=== PATIENT | male | born 1965 | race Caucasian/White ===

== ENCOUNTER 2020-05-14 14:17 | Outpatient (REF) | payer MEDICAID, SELFPAY ==
--- NOTE | 2020-05-14 14:26 | XR_ITS ---
EXAMINATION: XR LUMBOSACRAL SPINE WITH OBLIQUES CLINICAL INFORMATION: Right-sided sciatica. COMPARISON: Lumbar spine x-rays of 11/19/2017. TECHNIQUE: AP and lateral views of the lumbar spine and coned-down lateral view of L5-S1 were obtained. FINDINGS: There are 5 lumbar-type [id number] vertebrae. Vertebral body heights are maintained. Mild grade 1 anterolisthesis of L5 over S1 is a stable finding. The alignment of the spine is otherwise maintained. Stable finding of severe narrowing of the L5-S1 disc space with vacuum disc phenomenon. Mild narrowing of the L3-L4 disc space. Remainder of the disc spaces are grossly preserved. Multilevel minimal hypertrophic endplate spurring is noted. Scattered vascular calcifications are seen. Facet arthropathy at L5-S1. Limited evaluation of the sacroiliac joints is unremarkable. IMPRESSION: Mild lumbar spondylosis. Severe degenerative disc disease at L5-S1 with significant loss of disc height and mild grade 1 anterolisthesis of L5 over S1 are stable findings. Overall, no significant interval change is noted compared to last study.
== END 2020-05-14 14:18 | disposition home or self-care (01) ==
LOC: HO.XRAY 14:17
PROVIDERS: PCP Family Medicine; Visit Provider Family Medicine
DX: M54.31 Sciatica, right side (principal)
CPT/HCPCS: 72110

== ENCOUNTER → 2020-06-25 13:11 | Outpatient (BNVA) | payer MEDICAID, SELFPAY | PROVIDERS: PCP Family Medicine; Referring Provider Family Medicine; Visit Provider Nurse Practitioner Family | DX: Z13.89 Encounter for screening for other disorder (principal) ==

== ENCOUNTER 2020-08-20 09:16 | Day surgery (SDC) | payer MEDICAID, SELFPAY ==
[2020-08-15 08:48] VITALS: BMI 23.3
--- NOTE | 2020-08-19 10:19 | HO.ANESPROP2 ---
Documented by User: Isabela Flores 08/19/20 10:20 HPI - Anesthesia Eval Consult details Narrative: 55yo M for Colonoscopy [facility] Past Medical History Medical History Arthritis Congenital foot abnormality Depression Hepatitis A immune Lumbar degenerative disc disease Nonimmune to hepatitis B virus Family History Family History Mother Liver cancer Maternal Uncle Alcoholism Surgical History Surgical History History of hydrocelectomy History of repair of laceration Social History Social History Household Members: None Housing: Apartment Alcohol intake: current Alcohol intake frequency: does not drink Smoking Status: Current some day smoker Tobacco Type: Cigarette Cigarettes Per Day: 9 Use of substances other than those prescribed or required for medical reasons: Yes Substance Use Type: Marijuana Substance Use Frequency: Daily Advance Directives: No Advance Directives Information Provided: No Advance Directives on File: No Meds Allergies Allergy/AdvReac Type Severity Reaction Status Date / Time No Known Allergies Allergy Verified 06/25/20 13:12 Home Medications Medication Instructions Recorded Confirmed Type cyclobenzaprine 5 mg tablet 5 mg PO TID PRN 06/25/20 08/15/20 History naproxen 500 mg tablet 500 mg PO BID 06/25/20 08/15/20 History trazodone 150 mg tablet 150 mg PO BEDTIME PRN 06/25/20 08/15/20 History Exam Exam Date and Time: August 19, 2020 1019 Height,Weight and Vital Signs: Height 5 ft 5 in Weight 63.503 kg Assessment and Plan Assessment Anesthesia Assessment: Chart Reviewed Documented by User: Gloria Henry 08/20/20 11:13 [facility] Past Medical History Medical History Arthritis Congenital foot abnormality Depression Hepatitis A immune Lumbar degenerative disc disease Nonimmune to hepatitis B virus Family History Family History Mother Liver cancer Maternal Uncle Alcoholism Surgical History Surgical History History of hydrocelectomy History of repair of laceration Social History Social History Household Members: None Housing: Apartment Alcohol intake: current Alcohol intake frequency: does not drink Smoking Status: Current some day smoker Tobacco Type: Cigarette Cigarettes Per Day: 9 Use of substances other than those prescribed or required for medical reasons: Yes Substance Use Type: Marijuana Substance Use Frequency: Daily Advance Directives: No Advance Directives Information Provided: No Advance Directives on File: No Meds Allergies Allergy/AdvReac Type Severity Reaction Status Date / Time No Known Allergies Allergy Verified 06/25/20 13:12 Home Medications Medication Instructions Recorded Confirmed Type cyclobenzaprine 5 mg tablet 5 mg PO TID PRN 06/25/20 08/15/20 History naproxen 500 mg tablet 500 mg PO BID 06/25/20 08/15/20 History trazodone 150 mg tablet 150 mg PO BEDTIME PRN 06/25/20 08/15/20 History Exam Airway Mallampati Class: II TM Dist: >3cm Neck ROM: Full Loose/Missing/Broken Teeth: Yes (Lower central incisor) Heart: RRR Lungs: CTA Assessment and Plan Assessment Anesthesia Assessment: Anesthesia Plan Discussed and Chart Reviewed Final Anesthetic Review NPO: Yes ASA Class: II Final Preanesthetic Review: Meds/Allgs Chart Reviewed, Consent Obtained/Reviewed and Anes Risks/Benef Reviewed Patient Risk: Low Procedure Risk: Low Anesthetic Plan Anesthetic Plan: MAC:
[2020-08-20 10:38] VITALS: BP 126/74; PULSE 67; RESP 18; TEMP 36.6; O2SAT 96
[2020-08-20] MEDS: Lactated Ringers 1,000 ML 100 ML IVCONT (10:55)
--- NOTE | 2020-08-20 11:15 | MHC.SHP ---
Pre-Procedural Eval Section B Chief Complaint: screening Details of Present Illness: colon cancer screening Relevant Family History (Specify if Yes): No Relevant Social History: Tobacco Use Present Medications: see Short Stay Collaborative assessment Medical History: Significant History (DDD, Arthritis) History of Previous Operations: No relevant previous surgery Allergies: Allergies Allergy/AdvReac Type Severity Reaction Status Date / Time No Known Allergies Allergy Verified 06/25/20 13:12 Review of Systems Sugical H&P ROS: Negative: Constitution, Cardiovascular, Respiratory and Gastrointestinal Exam Surgical H&P Exam: Normal: HEENT, Normal: Heart, Normal: Lungs, Normal: Extremities and Normal: Abdomen Plan Diagnosis/Plan: Unchanged I have reviewed the history and physical and performed a pertinent physical examination on my patient. No changes have occurred unless specified.Yes
--- NOTE | 2020-08-20 11:58 | PM.PROC ---
Brief Operative Note Date of procedure: 08/20/20 Pre-op diagnosis: colon cancer screening Post-op diagnosis: other (NEGATIVE (MARGINAL PREP.), INTERNAL HEMORRHOIDS.) Procedure: COLONOSCOPY Anesthesia: MAC (MD KATHY) Surgeon: Edita Pantoja Estimated blood loss (mL): 0 Pathology: none sent Condition: stable Disposition: PACU
[2020-08-20 12:00] VITALS: BP 97/53; PULSE 66; RESP 16; TEMP 36.4; O2SAT 95
[2020-08-20 12:15] VITALS: BP 106/59; PULSE 55; RESP 16; O2SAT 97
[2020-08-20 12:27] VITALS: BP 124/86; PULSE 63; RESP 16; TEMP 36.4; O2SAT 98
--- NOTE | 2020-08-20 12:49 | HO.POSTANES ---
Post Anesthesia Evaluation Post Anesthesia Evaluation Vital Signs: Vital Signs Temp Pulse Resp BP Pulse Ox 08/20/20 12:27 97.6 F 63 16 124/86 98 08/20/20 12:15 55 16 106/59 L 97 08/20/20 12:00 97.6 F 66 16 97/53 L 95 08/20/20 10:38 97.9 F 67 18 126/74 96 Anesthesia: Monitored Mental Status: Awake Pain Control: Satisfactory Nausea/Vomiting: None Hydration: Adequate Anesthesia-Related Issues: No Anes. Related Issues
--- NOTE | 2020-08-20 20:57 | OP_ITS ---
SURGEON: Edita Pantoja MD PREOPERATIVE DIAGNOSIS: Colon cancer screening PROCEDURE PERFORMED: Colonoscopy. ESTIMATED BLOOD LOSS: No blood loss. COMPLICATIONS: No complications. ANESTHESIA: Monitored. ANESTHESIOLOGIST: Dr. Sanchez ASSISTANTS: No restaurant assistant. SPECIMENS: No specimens removed. POSTOPERATIVE DIAGNOSES: Negative: There was lots of retained turbid fluid. No large lesions were appreciated. 1+ internal hemorrhoids were noted. MINCING MACHINE OPERATOR: Dr. Pantoja. CONDITION: Postop, stable. DESCRIPTION OF PROCEDURE: Digital rectal exam revealed prostate to be normal. Sphincter tone to be adequate. Video colonoscope was introduced without difficulty. It was navigated into the rectosigmoid. There was a moderate amount of retained turbid fluid that despite flushing and suctioning continued to the recollect throughout the entire procedure. Scope moved through a redundant left side, sigmoid, descending, transverse colon. In the region of the proximal transverse colon, extrinsic abdominal pressure was applied, facilitated movement through hepatic flexure, ascending colon down into the cecum. Appendiceal orifice was seen. Ileocecal valve was well seen. This area was well visualized with flushing and suction. Slow rotational views on withdrawing the scope, there were still areas obscured by effluent that was hard to completely remove. With this type of prep, no microadenomas could be seen. There was certainly no large lesions present. Anorectal verge was clear. There were 1+ internal hemorrhoids noted. PLAN AND CURRENT RECOMMENDATIONS: Repeat asymptomatic screening in this patient, is not to exceed 5 years. Would suggest FIT cards to be done at year 1 and 2. Any suggestion of bleeding or iron deficiency anemia, would necessitate earlier repeat screening. GRAFT OR IMPLANTS: No implants or grafts. Edita Pantoja MD MEN/MODL / [phone] MTDD
== END 2020-08-20 13:40 | disposition home or self-care (01) ==
PROVIDERS: PCP Family Medicine; Visit Provider Internal Medicine Gastroenterology
PROC: 0DJD8ZZ Inspection of Lower Intestinal Tract, Via Natural or Artificial Opening Endoscopic (ICD-10-PCS; CPT 45378; principal; 2020-08-20 10:30)
DX: Z12.11 Encounter for screening for malignant neoplasm of colon (principal); K64.8 Other hemorrhoids; Z80.0 Family history of malignant neoplasm of digestive organs; F17.210 Nicotine dependence, cigarettes, uncomplicated; F12.90 Cannabis use, unspecified, uncomplicated; Z79.899 Other long term (current) drug therapy
CPT/HCPCS: 45378

== ENCOUNTER → 2020-10-01 13:15 | Outpatient (BNVA) | payer MEDICAID, SELFPAY | PROVIDERS: PCP Family Medicine; Visit Provider Nurse Practitioner Family ==

== ENCOUNTER → 2020-10-29 13:20 | Outpatient (BNVA) | payer MEDICAID, SELFPAY | PROVIDERS: PCP Family Medicine; Visit Provider Nurse Practitioner Family ==

== ENCOUNTER 2020-11-28 10:35 | Emergency (ER) | payer MEDICAID, SELFPAY ==
[2020-11-28 11:24] VITALS: BP 98/62; RESP 16; TEMP 36.6; O2SAT 99; BMI 23.8
--- NOTE | 2020-11-28 12:59 | PC.NURSE ---
[address]50 [address] ENTERED TX ROOM FOR EXAM, ROOM WAS EMPTY, RN CHECKED BATHROOMS AND WR DID NOT LOCATE PT
== END 2020-11-28 13:00 | disposition left against medical advice (07) ==
PROVIDERS: Emergency Provider Emergency Medicine; PCP Family Medicine
DX: M54.9 Dorsalgia, unspecified (principal)
CPT/HCPCS: 99281; 99283

== ENCOUNTER 2020-11-30 15:10 | Emergency (ER) | payer MEDICAID, SELFPAY ==
--- NOTE | ~2020-11-30 | XR_ITS ---
EXAMINATION: XR LUMBOSACRAL SPINE CLINICAL INFORMATION: Fall with back pain COMPARISON: 05/14/2020 and 11/19/2017 TECHNIQUE: Three views of the lumbosacral spine. FINDINGS: Normal alignment with no acute fracture. Moderate-severe L5-S1 degenerative disc disease, no change. Mild degenerative changes throughout the remainder of the lumbar spine with sparing of L4-L5. Atherosclerotic calcifications of the abdominal aorta. XR/XR lumbar spine 2-3V IMPRESSION: Normal alignment with no fracture. Moderate-severe L5-S1 degenerative disc disease. No change.
--- NOTE | ~2020-11-30 | CT_ITS ---
EXAMINATION: CT CHEST WITHOUT CONTRAST CLINICAL INFORMATION: Right posterior rib pain COMPARISON: The upper portions of a CT of the abdomen 08/12/18 TECHNIQUE: Multidetector volumetric CT imaging of the chest was done. Axial MIP volume rendering provided. Sagittal and coronal reformatted images were obtained. This CT examination was performed using dose optimization techniques as appropriate, variously including the following: *Automated exposure control *Adjustment of mA and/or kV according to patient size (this includes techniques or standardized protocols for targeted exams where dose is matched to indication/reason for exam; i.e. extremities or head) *Use of iterative reconstruction technique DLP: 249 mGy-cm FINDINGS: CAREER DEVELOPMENT DIRECTOR: No mediastinal widening. No consolidation or contusion. No pneumothorax. The diaphragm contour is smooth. Spherical calcification right upper quadrant. LUNGS: No abnormality the central airways. No consolidation or edema. No suspicious mass MEDIASTINUM: There is no mediastinal hematoma. There are no enlarged mediastinal or hilar lymph nodes. There is no suspicious abnormality the esophagus. There is at least mild coronary artery calcification in the distribution of the left anterior descending coronary artery. PLEURA: There is no pleural effusion. No pleural mass or thickening. AXILLA: No lymphadenopathy. UPPER ABDOMEN: Spherical calcification in the region of the right adrenal is unchanged and of no clinical significance. There are tiny abnormalities in each kidney which are too small to characterize but likely represent cysts. OSSEOUS STRUCTURES: No rib fracture demonstrated. No suspicious focal lesion. CT/CT chest wo con IMPRESSION: No pulmonary contusion or pneumothorax. No acute displaced fracture.
[2020-11-30 15:15] VITALS: BP 112/68; PULSE 84; RESP 16; TEMP 37; O2SAT 95; BMI 25.7
[2020-11-30 16:01] VITALS: BP 112/75; PULSE 79; RESP 16; O2SAT 95
--- NOTE | 2020-11-30 16:04 | ED_ITS ---
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 Mode of arrival: ambulatory Limitations: no limitations History of Present Illness HPI Narrative: 55 yo male with arthritis here with back pain for almost a decade but notes it is much worse recently it all started after pulling a boat in [place] over the past few weeks it has worsened and he feels a bump in his R posterior ribs and it makes it hard for him to walk or do anything MD elicited complaint: back pain Pertinent past history: prior back pain Onset (ago): year(s) Timing: progressively worsening Severity: moderate Similar Symptoms Previously: Yes Quality: sharp and stabbing Location: thoracic spine and right upper back Radiation: right upper leg Exacerbating factors: movement, walking and lifting Context: trauma Associated symptoms: weakness and difficulty walking Work related injury: No Related Data Home Medications Medication Instructions Recorded Confirmed cyclobenzaprine 5 mg tablet 5 mg PO TID PRN 06/25/20 08/15/20 naproxen 500 mg tablet 500 mg PO BID 06/25/20 08/15/20 trazodone 150 mg tablet 150 mg PO BEDTIME PRN 06/25/20 08/15/20 Previous Rx's Medication Instructions Recorded hydrocortisone 2.5 % topical cream 1 appl WA QID PRN #30 g 10/01/20 with perineal applicator methylcellulose (laxative) 500 mg 500 mg PO DAILY #30 tab 10/01/20 tablet lidocaine 1 patch TOPICAL DAILY PRN #10 ea 11/30/20 prednisone 40 mg PO DAILY 5 Days #10 tab 11/30/20 Allergies Allergy/AdvReac Type Severity Reaction Status Date / Time No Known Allergies Allergy Verified 10/29/20 13:20 Review of Systems Review of Systems: Constitutional : No Weight loss, No Fever, No Chills, ENT/Mouth : No Hearing loss, No Ear Pain, No Nasal Congestion, No Sinus Pain, No Hoarseness, No sore throat, No Rhinorrhea, No Swallowing Difficulty Cardiovascular : No Chest Pain, No SOB Respiratory : No Cough, No Dyspnea Gastrointestinal : No Nausea, No Vomiting, No Diarrhea, No abdominal Pain, No Hematochezia, No Melena Genitourinary : No Dysuria, No Urinary Frequency, No Hematuria, No Urinary Incontinence, Musculoskeletal : positive back pain Skin : No Skin Lesions, No rash Neuro : No Weakness, No Numbness, No Paresthesias, no loss of bowel or bladder incontinence, no saddle anesthesia [facility] Past Medical History Attestation statement: The following information was validated with the patient. Medical History Arthritis Congenital foot abnormality Constipation Depression Hemorrhoid Hepatitis A immune Lumbar degenerative disc disease Nonimmune to hepatitis B virus Surgical History H/O colonoscopy History of esophagogastroduodenoscopy (EGD) History of hydrocelectomy History of repair of laceration Family History Family History Mother Liver cancer Maternal Uncle Alcoholism Social History Social History Household Members: None Housing: Apartment Alcohol intake: current Alcohol intake frequency: does not drink Smoking Status: Current some day smoker Tobacco Type: Cigarette Packs Per Day: 1 Substance Use Type: Marijuana Advance Directives: No Advance Directives Information Provided: No Physical Exam Vital Signs: Vital Signs: Last Vital Signs Temp 98.6 F 11/30/20 15:15 Pulse 73 11/30/20 18:06 Resp 16 11/30/20 18:06 BP 112/73 11/30/20 18:06 Pulse Ox 98 11/30/20 18:06 Body Mass Index 25.7 Appearance: Alert. Oriented X3. No acute distress. Eyes: Pupils equal, round and reactive to light. ENT: Pharynx normal. Neck: Normal inspection. Neck supple. CVS: Normal heart rate and rhythm. Pulses normal. Respiratory: No respiratory distress. Breath sounds normal. Abdomen: Soft and nontender. Back: ttp along R upper thoracic with spasm and R posterior ribs Skin: Skin warm and dry. Normal skin color. Normal skin turgor. Extremities: No lower extremity edema. No calf ttp R foot turned in but congenital Neuro: Oriented X 3. No motor deficit. No sensory deficit. SILT inner thigh, L5 5/5 bilaterally Course Course Course Narrative: no acute findings at this time stable for DC MDM - Back Pain/Injury MDM Narrative Medical decision making narrative: 55 yo male with hx of arhtritis and remote back pain - comes in with R upper thoracic/rib pain feels a bump notes his back is worse c/o pain no b/b incontinence, no saddle anesthesia - at this time lumbar films ordered from triage, he has no CE symptoms, but will obtain CT chest for c/o R posterior rib pain for weeks doubt PE or pneumonia, PO oxycodone for pain, will likely refer to NSGY Discharge Plan Discharge Clinical Impression: Thoracic back pain Qualifiers: Chronicity: chronic Back pain laterality: right Qualified Code(s): M54.6 - Pain in thoracic spine Patient Disposition: Home, Self-Care Instructions: Back Pain (ED) Additional Instructions: return to ED for any worsening symptoms or concerns Prescriptions: New lidocaine 4 % adhesive patch,medicated 1 patch topical DAILY PRN (Reason: pain) Qty: 10 RF: 0 prednisone 20 mg tablet 40 mg PO DAILY 5 Days Qty: 10 RF: 0 No Action naproxen 500 mg tablet 500 mg PO BID RF: 0 cyclobenzaprine 5 mg tablet 5 mg PO TID PRN (Reason: Muscle Spasm) RF: 0 trazodone 150 mg tablet 150 mg PO BEDTIME PRN (Reason: Insomnia) RF: 0 Citrucel 500 mg tablet 500 mg PO DAILY Qty: 30 RF: 2 hydrocortisone [Anusol-HC] 2.5 % cream with perineal applicator 1 appl WA QID PRN (Reason: hemorrhoids) Qty: 30 RF: 2 Referrals: Mary Valadez MD [Physician] - 1 week Print Language: Anguillan
[2020-11-30] MEDS: oxyCODONE HCl Immed Release 5 MG TABLET PO (17:29)
[2020-11-30 18:06] VITALS: BP 112/73; PULSE 73; RESP 16; O2SAT 98
== END 2020-11-30 19:17 | disposition home or self-care (01) ==
PROVIDERS: Emergency Provider Emergency Medicine
DX: M54.5 Low back pain (principal); M54.6 Pain in thoracic spine; Z79.899 Other long term (current) drug therapy; F17.210 Nicotine dependence, cigarettes, uncomplicated; Z71.6 Tobacco abuse counseling
CPT/HCPCS: 71250; 72100; 99284; 99285

== ENCOUNTER → 2021-05-16 08:16 | Outpatient (BNVA) | payer MEDICAID, SELFPAY | PROVIDERS: Visit Provider Nurse Practitioner Family ==

== ENCOUNTER 2021-11-27 14:12 | Emergency (ER) | payer MEDICAID, SELFPAY ==
--- NOTE | ~2021-11-27 | XR_ITS ---
EXAMINATION: XR ELBOW, LEFT CLINICAL INFORMATION: Left elbow pain. COMPARISON: None TECHNIQUE: AP, lateral, and oblique views of the left elbow. FINDINGS: The bones and soft tissues are normal. No fracture or joint effusion. Alignment is anatomic. Joint spaces are maintained. XR/XR elbow LT min 3V IMPRESSION: Unremarkable left elbow.
[2021-11-27 14:43] VITALS: BP 104/67; PULSE 63; RESP 18; TEMP 36.7; O2SAT 97; BMI 25.2
--- NOTE | 2021-11-27 16:43 | ED_ITS ---
HPI - Extremity Problem General Chief complaint: Extremity Injury, Upper Stated complaint: L ARM PAIN Time Seen by Provider: 11/27/21 14:50 Source: patient Mode of arrival: ambulatory Limitations: language barrier History of Present Illness HPI Narrative: 56-year-old male presents for left arm pain that he has had for months. The pain is located in his medial left elbow and radiates down his left forearm. His 4th and 5th fingers get numb. No injury, no trauma, patient does not do any physical work that would explain a repetitive use injury No fevers Related Data Home Medications Medication Instructions Recorded Confirmed cyclobenzaprine 5 mg tablet 5 mg PO TID PRN 06/25/20 08/15/20 naproxen 500 mg tablet 500 mg PO BID 06/25/20 08/15/20 trazodone 150 mg tablet 150 mg PO BEDTIME PRN 06/25/20 08/15/20 Previous Rx's Medication Instructions Recorded hydrocortisone 2.5 % topical cream 1 appl DC QID PRN #30 g 10/01/20 with perineal applicator (Anusol-HC) lidocaine 4 % topical patch 1 patch TOPICAL DAILY PRN #10 ea 11/30/20 prednisone 20 mg tablet 40 mg PO DAILY 5 Days #10 tab 11/30/20 methylcellulose (laxative) 500 mg 500 mg PO DAILY #30 tab 05/16/21 tablet (Citrucel) prednisone 50 mg tablet 50 mg PO DAILY 5 Days #5 tab 11/27/21 Allergies Allergy/AdvReac Type Severity Reaction Status Date / Time No Known Allergies Allergy Verified 05/16/21 08:16 Review of Systems Constitutional: Constitutional: Denies body ache(s), Denies chills, Denies fatigue, Denies fever(s), Denies headache(s), Denies malaise and Denies weakness Eyes: Eyes: Denies diplopia ENT: Denies vertigo, Denies dizziness, Denies headache(s), Denies neck pain and Denies throat swelling Cardiovascular: Cardiovascular: Denies chest pain, Denies syncope, Denies leg edema, Denies lightheadedness, Denies Loss of Consciousness, Denies palpitations and Denies dyspnea Respiratory: Respiratory: Denies chest congestion, Denies cough and Denies dyspnea Musculoskeletal: Musculoskeletal: Reports arthralgias, Denies neck pain, Reports numbness, Reports radiating pain into limb and Reports tingling Neurologic: Denies confusion, Denies vertigo, Denies dizziness, Denies syncope, Denies headache(s), Reports numbness, Reports tingling and Denies weakness Psychiatric: Psychiatric: Denies anxiety, Denies confusion and Denies depression Endocrine: Endocrine: Denies fatigue and Denies palpitations Allergic/Immunologic: Allergic/Immunologic: Denies throat swelling PMFSH Past Medical History Medical History Arthritis Congenital foot abnormality Constipation Depression Hemorrhoid Hepatitis A immune Lumbar degenerative disc disease Nonimmune to hepatitis B virus Surgical History H/O colonoscopy History of esophagogastroduodenoscopy (EGD) History of hydrocelectomy History of repair of laceration Family History Family History Mother Liver cancer Maternal Uncle Alcoholism Social History Social History Household Members: None Housing: Apartment Do you presently have visiting nurse or other home services: Yes (EVENTS AND PROMOTIONS ASSISTANT- 1 hour daily) Alcohol intake: current Alcohol intake frequency: does not drink Cigarette Packs Per Day: 1 Substance Use Type: Marijuana Advance Directives: No Advance Directives Information Provided: Yes Physical Exam Vital Signs: Vital Signs: Last Vital Signs Temp 98.1 F 11/27/21 14:43 Pulse 63 11/27/21 14:43 Resp 18 11/27/21 14:43 BP 104/67 11/27/21 14:43 Pulse Ox 97 11/27/21 14:43 BMI result Body Mass Index 25.2 Const: General: No confusion Nutritional Appearance: well nourished Orientation/consciousness: No confusion Limitations: no limitations Eyes: Conjunctivae: conjunctivae normal Pupils: Equal, round and reactive pupils present EOM: EOMs intact bilaterally Neck: Neck: Yes full ROM, Yes no lymphadenopathy and Yes supple Resp: Effort & Inspection: normal respiratory effort and able to speak in complete sentences Auscultation: clear to auscultation bilaterally, no crackles, no rales, no rhonchi and no wheezes Cardio: Rate: regular rate Rhythm: regular rhythm Heart sounds: S1 normal heart sound present and S2 normal heart sound present Skin: General skin exam: no rashes or lesions noted Neuro: General: No confusion Cranial nerves: Yes Equal, round and reactive pupils present Extrem: Left upper extremity: normal to inspection, full ROM, normal capillary refill, no joint enlargement and elbow/forearm Details: tenderness Location: of the medial epicondyle Details: with resisted supination, normal ROM and distal pulses intact; Negative for no swelling, no unusual warmth, no abrasions, no lacerations, no crepitus and no deformity Psych: Appearance: grossly normal Affect: normal affect Attitude: cooperative Thought process: Normal thought process present Course Course Course Narrative: 56-year-old male presents for left elbow pain that radiates with radicular pain to his left forearm into his 4th and 5th fingers. On exam, patient has left upper extremity intact pulses, sensation, range of motion, and motor strength. When I press and patient's medial epicondyle, recreates and ulnar radiculopathy in his 4th and 5th fingers. Getting x-ray, expected to be negative, giving prednisone, presumed ulnar radiculopathy, follow-up with ortho. Reevaluation(s) Reevaluation #1: XR negative. Prednisone, follow-up with Ortho FINDINGS: The bones and soft tissues are normal. No fracture or joint effusion. Alignment is anatomic. Joint spaces are maintained.? XR/XR elbow LT min 3V IMPRESSION: Unremarkable left elbow. Discharge Plan Discharge Clinical Impression: Ulnar neuropathy at elbow of right upper extremity Patient Disposition: Home, Self-Care Instructions: Cubital Tunnel Syndrome (ED) Additional Instructions: Please call Orthopedics at the following number [phone] I have also referred you to them. Please take the medicine I have prescribed starting tomorrow. I think you have an impingement on your ulnar nerve in your elbow which is causing your finger numbness and your elbow pain Orthopedics should be able to help you with this diagnosis Por favor llame a [facility] al siguiente n?[place] [phone] Tambi?n te he referido a ellos. Por favor, tome el medicamento que le he recetado a partir de ma?jonathan. Creo que tiene un pinzamiento en el nervio cubital en el codo que le est? causando entumecimiento del dedo y dolor en el codo. La [facility]edia deber?a poder ayudarte con crys diagn?stico. Prescriptions: New prednisone 50 mg tablet 50 mg PO DAILY 5 Days Qty: 5 0RF No Action lidocaine 4 % adhesive patch,medicated 1 patch topical DAILY PRN (Reason: pain) Qty: 10 0RF Rx Instructions: may leave on for up to 12 hrs prednisone 20 mg tablet 40 mg PO DAILY 5 Days Qty: 10 0RF naproxen 500 mg tablet 500 mg PO BID 0RF cyclobenzaprine 5 mg tablet 5 mg PO TID PRN (Reason: Muscle Spasm) 0RF trazodone 150 mg tablet 150 mg PO BEDTIME PRN (Reason: Insomnia) 0RF hydrocortisone [Anusol-HC] 2.5 % cream with perineal applicator 1 appl DC QID PRN (Reason: hemorrhoids) Qty: 30 2RF Citrucel 500 mg tablet 500 mg PO DAILY Qty: 30 6RF Referrals: Jeovanny Tucker MD [Physician] - Print Language: Georgian
[2021-11-27] MEDS: predniSONE 20 MG TABLET 60 MG PO (17:34)
== END 2021-11-27 18:28 | disposition home or self-care (01) ==
PROVIDERS: Emergency Provider Internal Medicine
DX: G56.22 Lesion of ulnar nerve, left upper limb (principal)
CPT/HCPCS: 73080; 99283

== ENCOUNTER 2022-06-22 13:03 | Emergency (ER) | payer MEDICAID, SELFPAY ==
--- NOTE | ~2022-06-22 | CT_ITS ---
EXAMINATION: CT head/brain wo IV con CLINICAL INFORMATION: Reason for Exam seeing white spots ( resolved) COMPARISON: CT head without contrast 11/02/2017 TECHNIQUE: Contiguous axial imaging was performed from the skull base to vertex without intravenous contrast. Sagittal and coronal reformatted images were obtained. This CT examination was performed using dose optimization techniques as appropriate, variously including the following: * Automated exposure control * Adjustment of mA and/or kV according to patient size (this includes techniques or standardized protocols for targeted exams where dose is matched to indication/reason for exam; i.e. extremities or head) Use of iterative reconstruction technique DLP: 772 mGy-cm FINDINGS: No acute osseous or soft tissue abnormality. The mastoids are clear. Trace sphenoid sinus fluid. There is no evidence of acute intracranial hemorrhage or territorial infarction. Stable calcification along the ependymal margin of the right lateral ventricle. No abnormal mass effect or midline shift is seen. Love to white matter differentiation is well preserved. No extra-axial fluid collections are identified. No hydrocephalus. No significant volume loss. There is no abnormal attenuation within the brain parenchyma. CT/CT head/brain wo IV con IMPRESSION: No acute intracranial abnormality including hemorrhage, mass effect, hydrocephalus, or acute territorial edematous infarction.
--- NOTE | 2022-06-22 13:11 | ED.EYEPROB ---
HPI - Eye Problem General Chief complaint: Eye Problems Stated complaint: seeing white dots Time Seen by Provider: 06/22/22 16:26 Related Data Home Medications Medication Instructions Recorded Confirmed cyclobenzaprine 5 mg tablet 5 mg PO TID PRN Muscle Spasm 06/25/20 08/15/20 naproxen 500 mg tablet 500 mg PO BID 06/25/20 08/15/20 trazodone 150 mg tablet 150 mg PO BEDTIME PRN Insomnia 06/25/20 08/15/20 Previous Rx's Medication Instructions Recorded hydrocortisone 2.5 % topical cream 1 appl OR QID PRN hemorrhoids #30 10/01/20 with perineal applicator grams (Anusol-HC) lidocaine 4 % topical patch 1 patch topical DAILY PRN pain #10 11/30/20 ea prednisone 20 mg tablet 40 mg PO DAILY 5 days #10 tabs 11/30/20 methylcellulose (laxative) 500 mg 500 mg PO DAILY #30 tabs 05/16/21 tablet (Citrucel) prednisone 50 mg tablet 50 mg PO DAILY 5 days #5 tabs 11/27/21 ondansetron 4 mg disintegrating 4 mg PO Q8H PRN nausea and 06/25/22 tablet vomiting 5 days #15 tabs Allergies Allergy/AdvReac Type Severity Reaction Status Date / Time No Known Allergies Allergy Verified 06/22/22 13:11 [facility] Past Medical History Medical History Arthritis Congenital foot abnormality Constipation Depression Hemorrhoid Hepatitis A immune Lumbar degenerative disc disease Nonimmune to hepatitis B virus Surgical History H/O colonoscopy History of esophagogastroduodenoscopy (EGD) History of hydrocelectomy History of repair of laceration Family History Family History Mother Liver cancer Maternal Uncle Alcoholism Social History Social History Household Members: None Housing: Apartment Do you presently have visiting nurse or other home services: Yes (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 daily) Alcohol intake: current Alcohol intake frequency: does not drink Cigarette Packs Per Day: 1 Smoked in Last 30 Days: Yes Use of substances other than those prescribed or required for medical reasons: Yes Substance Use Type: Marijuana Advance Directives: No Advance Directives Information Provided: Yes Physical Exam Vital Signs: Vital Signs: Last Vital Signs Temp 98.3 F 06/22/22 19:47 Pulse 74 06/22/22 19:47 Resp 14 06/22/22 19:47 BP 121/81 06/22/22 19:47 Pulse Ox 96 06/22/22 19:47 O2 Del Method 06/22/22 19:47 BMI result Body Mass Index 25.9 Course Course Course Narrative: Patient seen in triage as a medical screening exam. Limited physical exam no ophtalmascope. Here stating he walks with a cane at baseline and now is seeing bright spots in his vision. This is the first time this has happened. He states it started today never had the problem before. Denies pain redness cough fever chest pain weakness or other problem. He states he is always unbalanced and today is no different. Patient was able to see my fingers and count them accurately no deficits. I will send to the back for visual acuity and better exam likely will need outpatient follow up. MDM - Eye Problem Lab Data Labs: Lab Results 06/22/22 Range/Units 20:09 POC Glucose 148 H (60-115) mg/dL Discharge Plan Discharge Clinical Impression: Visual floaters Patient Disposition: Home, Self-Care Instructions: Visual Floaters (ED) Additional Instructions: necesita seguimiento con el oftalm?logo. TAC de cristine normal. Ultrasonido de cabecera negativo para desprendimiento de retina. Cualquier dolor de cristine, dificultad para hablar, ca?da facial, p?rdida de la visi?n, par?lisis de las extremidades, dolor de cristine, mareos, n?useas, v?mitos, dolor ocular intenso o cualquier otro s?ntoma preocupante. Prescriptions: No Action lidocaine 4 % adhesive patch,medicated 1 patch topical DAILY PRN (Reason: pain) Qty: 10 0RF Rx Instructions: may leave on for up to 12 hrs prednisone 20 mg tablet 40 mg PO DAILY 5 Days Qty: 10 0RF prednisone 50 mg tablet 50 mg PO DAILY 5 Days Qty: 5 0RF ondansetron 4 mg tablet,disintegrating 4 mg PO Q8H PRN (Reason: nausea and vomiting) 5 Days Qty: 15 0RF naproxen 500 mg tablet 500 mg PO BID cyclobenzaprine 5 mg tablet 5 mg PO TID PRN (Reason: Muscle Spasm) trazodone 150 mg tablet 150 mg PO BEDTIME PRN (Reason: Insomnia) hydrocortisone [Anusol-HC] 2.5 % cream with perineal applicator 1 appl OR QID PRN (Reason: hemorrhoids) Qty: 30 2RF Citrucel 500 mg tablet 500 mg PO DAILY Qty: 30 6RF Referrals: Erick Nuñez [Physician] - (visual floaters) Stand Alone Forms: Work/School Release Interventions: ED Discharge Assessment Last Done: 06/22/22 20:36 Discharge Date/Time: 06/22/22 20:37 Print Language: Citizen Of [place]
[2022-06-22 13:14] VITALS: BP 119/74; PULSE 84; RESP 18; TEMP 36.7; O2SAT 98; BMI 25.9
[2022-06-22 15:38] VITALS: BP 129/78; PULSE 74; RESP 16; TEMP 37; O2SAT 97
[2022-06-22 15:58] VITALS: BP 118/83; PULSE 73; RESP 16; TEMP 37.2; O2SAT 98
--- NOTE | 2022-06-22 16:00 | PC.NURSE ---
Patient assessed with use of sign language interpreter , primary language Frisian . patient reports waking up yesterday with spots of light all over his visual field when he looks at things . idaniarla . heart rate regular at 68 beats per minute . breathing equal and unlabored . lungs clear throughout . skin warm pink wand dry . limited use of right arm from previous injury . Hai assessment passed . abdomen soft , positive bowel sounds in all four quadrants . IV placed in left A .C Ultra sound used at bedside by provider to rule out detached retina . patient to C.T . for images . patient aware of plan of care .
[2022-06-22 18:00] VITALS: BP 120/83; PULSE 69; RESP 16; TEMP 36.6; O2SAT 97
--- NOTE | 2022-06-22 18:06 | ED_ITS ---
HPI - General Adult General Chief complaint: Eye Problems Stated complaint: seeing white dots Time Seen by Provider: 06/22/22 16:26 Source: patient Mode of arrival: ambulatory Limitations: no limitations History of Present Illness HPI narrative: 57 yold male with no pmh presents to the ED seeing white spots in both eyes around 10 am when he woke up. patient states it lasted for a couple minutes and than resolved. Patient states at that time of seeing white spots in both eyes he did not have any slurred speech, facial droop, paralysis of extremities, loss of visions, dizzness, or headache. Patient presently vision is normal. patient is asymptomatic. patient denies any recent trauma. patient states no eye pain. Patient wheres glasses to see at baseline. Related Data Home Medications Medication Instructions Recorded Confirmed cyclobenzaprine 5 mg tablet 5 mg PO TID PRN Muscle Spasm 06/25/20 08/15/20 naproxen 500 mg tablet 500 mg PO BID 06/25/20 08/15/20 trazodone 150 mg tablet 150 mg PO BEDTIME PRN Insomnia 06/25/20 08/15/20 Previous Rx's Medication Instructions Recorded hydrocortisone 2.5 % topical cream 1 appl MD QID PRN hemorrhoids #30 10/01/20 with perineal applicator grams (Anusol-HC) lidocaine 4 % topical patch 1 patch topical DAILY PRN pain #10 11/30/20 ea prednisone 20 mg tablet 40 mg PO DAILY 5 days #10 tabs 11/30/20 methylcellulose (laxative) 500 mg 500 mg PO DAILY #30 tabs 05/16/21 tablet (Citrucel) prednisone 50 mg tablet 50 mg PO DAILY 5 days #5 tabs 11/27/21 Allergies Allergy/AdvReac Type Severity Reaction Status Date / Time No Known Allergies Allergy Verified 06/22/22 13:11 Review of Systems Review of Systems: resolved bilateral seeing white spots in eyes Yes all other systems are reviewed and are negative [facility] Past Medical History Medical History Arthritis Congenital foot abnormality Constipation Depression Hemorrhoid Hepatitis A immune Lumbar degenerative disc disease Nonimmune to hepatitis B virus Surgical History H/O colonoscopy History of esophagogastroduodenoscopy (EGD) History of hydrocelectomy History of repair of laceration Family History Family History Mother Liver cancer Maternal Uncle Alcoholism Social History Social History Household Members: None Housing: Apartment Do you presently have visiting nurse or other home services: Yes (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) Alcohol intake: current Alcohol intake frequency: does not drink Cigarette Packs Per Day: 1 Smoked in Last 30 Days: Yes Use of substances other than those prescribed or required for medical reasons: Yes Substance Use Type: Marijuana Advance Directives: No Advance Directives Information Provided: Yes Physical Exam ED Vital Signs: Vital Signs - 24 hr 06/22/22 13:14 06/22/22 15:38 06/22/22 15:58 Temperature 98.1 F 98.6 F 98.9 F Pulse Rate 84 74 73 Respiratory Rate 18 16 16 Blood Pressure 119/74 129/78 118/83 Pulse Oximetry 98 97 98 Oxygen Delivery Method Room Air Room Air Room Air 06/22/22 18:00 06/22/22 19:47 Temperature 97.8 F 98.3 F Pulse Rate 69 74 Respiratory Rate 16 14 Blood Pressure 120/83 121/81 Pulse Oximetry 97 96 Oxygen Delivery Method Room Air Room Air BMI result Body Mass Index 25.9 Const General: cooperative, healthy appearing, comfortable, no acute distress, well developed, alert, awake and Physically active [facility] Head: Yes normal to inspection, Yes No palpable skull fracture present, Yes normocephalic, Yes atraumatic and No abrasion Eyes Other: bilateral eyes negative for any redness, photophobia, or discharge. Peripheral and central vision intact. patient can seen in all visual ward. when seen with both eyes and with 1 eye only vision is normal and denies any blurry vi radha. Patient denies diplopia. General: appearance normal, both eyes and all related structures Neck Neck: Yes normal visual inspection, Yes full ROM, Yes no lymphadenopathy, Yes no meningeal signs, Yes trachea midline, Yes supple, No anterior neck swelling and No tender Chest Chest palpation & inspection: normal inspection of the chest and normal palpation of entire chest wall Resp Effort & Inspection: normal respiratory effort and able to speak in complete sentences Auscultation: clear to auscultation bilaterally Cardio Jugular venous distension: no JVD Heart sounds: S1 normal heart sound present and S2 normal heart sound present GI Inspection: Yes normal to inspection and No abdominal wall ecchymosis Palpation (GI): Soft to palpation, not firm, nontender, no guarding and not rigid General: No CVA tenderness Back/Spine/Pelvis Back: No CVA tenderness and No back tenderness Skin General skin exam: no rashes or lesions noted and elasticity normal Neuro Other: Patient alert oriented x3. Negative facial droop. Negative slurred speech. Negative pronator drift. All extremities equal strength 5+. Finger to nose rapid hand movement intact. 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 Will do bedside ultrasound in visual acuity P Reevaluation(s) Reevaluation #1: bedside ultrasound negative for retinal detachment. Unlikely stroke but will order head CT scan. No need for CTA patient presently asymptomatic and denies having current like visual loss. Peripheral and central visual ward intact. Not suspecitng arterial/venous occlusion in the eye. not suspecting large emboli in neck to cause stroke Time: 18:26 Reevaluation #2: head CT scan negative. He was seen glucose normal. Visually acuity in both eye is 20/50. patient states he needs prescription glasses to see/read. He states present glasses he bought for cheap at [facility] and are nor prescription. Time: 20:18 Medical Decision Making [facility] Narrative Medical decision making narrative: visual floaters Lab Data Labs: Lab Results 06/22/22 Range/Units 20:09 POC Glucose 148 H (60-115) mg/dL Discharge Plan Discharge Clinical Impression: Visual floaters Patient Disposition: Home, Self-Care Instructions: Visual Floaters (ED) Additional Instructions: necesita seguimiento con el oftalm?logo. TAC de cristine normal. Ultrasonido de cabecera negativo para desprendimiento de retina. Cualquier dolor de cristine, dificultad para hablar, ca?da facial, p?rdida de la visi?n, par?lisis de las extremidades, dolor de cristine, mareos, n?useas, v?mitos, dolor ocular intenso o cualquier otro s?ntoma preocupante. Prescriptions: No Action lidocaine 4 % adhesive patch,medicated 1 patch topical DAILY PRN (Reason: pain) Qty: 10 0RF Rx Instructions: may leave on for up to 12 hrs prednisone 20 mg tablet 40 mg PO DAILY 5 Days Qty: 10 0RF prednisone 50 mg tablet 50 mg PO DAILY 5 Days Qty: 5 0RF naproxen 500 mg tablet 500 mg PO BID cyclobenzaprine 5 mg tablet 5 mg PO TID PRN (Reason: Muscle Spasm) trazodone 150 mg tablet 150 mg PO BEDTIME PRN (Reason: Insomnia) hydrocortisone [Anusol-HC] 2.5 % cream with perineal applicator 1 appl MD QID PRN (Reason: hemorrhoids) Qty: 30 2RF Citrucel 500 mg tablet 500 mg PO DAILY Qty: 30 6RF Referrals: Erick Nuñez [Physician] - (visual floaters) Stand Alone Forms: Work/School Release Interventions: ED Discharge Assessment Last Done: 06/22/22 20:36 Discharge Date/Time: 06/22/22 20:37 Print Language: Tajik
[2022-06-22 19:47] VITALS: BP 121/81; PULSE 74; RESP 14; TEMP 36.8; O2SAT 96
[2022-06-22 20:13] LABS: Glucose, Whole Blood 148 mg/dL (60-115)
== END 2022-06-22 20:37 | disposition home or self-care (01) ==
PROVIDERS: Emergency Provider Internal Medicine
DX: H43.393 Other vitreous opacities, bilateral (principal); F17.210 Nicotine dependence, cigarettes, uncomplicated; F12.90 Cannabis use, unspecified, uncomplicated
CPT/HCPCS: 70450; 82947; 99284

== ENCOUNTER 2022-06-25 09:02 | Emergency (ER) | payer MEDICAID, SELFPAY ==
[2022-06-25 09:04] VITALS: BP 113/78; PULSE 125; RESP 20; TEMP 36.6; O2SAT 98; BMI 26.6
--- NOTE | 2022-06-25 09:13 | ED_ITS ---
HPI - Nausea/Vomiting/Diarrhea General Chief complaint: Nausea/Vomiting/Diarrhea Stated complaint: unable to eat past 3 days Time Seen by Provider: 06/25/22 09:08 Source: patient Mode of arrival: ambulatory Limitations: language barrier History of Present Illness HPI Narrative: 3 days of not eating because of nausea. Patient has not had any alcohol for a long time. Patient denies fever. Patient is smoking marijuana, no cyclical vomiting. No abdominal pain MD elicited complaint: nausea and vomiting Onset (ago): day(s) Description of vomiting: watery Associated nausea: Yes Associated abdominal pain: No Location of pain: none Exacerbating factors: eating Associated symptoms: nausea/vomiting Related Data Home Medications Medication Instructions Recorded Confirmed cyclobenzaprine 5 mg tablet 5 mg PO TID PRN Muscle Spasm 06/25/20 08/15/20 naproxen 500 mg tablet 500 mg PO BID 06/25/20 08/15/20 trazodone 150 mg tablet 150 mg PO BEDTIME PRN Insomnia 06/25/20 08/15/20 Previous Rx's Medication Instructions Recorded hydrocortisone 2.5 % topical cream 1 appl [place] QID PRN hemorrhoids #30 10/01/20 with perineal applicator grams (Anusol-HC) lidocaine 4 % topical patch 1 patch topical DAILY PRN pain #10 11/30/20 ea prednisone 20 mg tablet 40 mg PO DAILY 5 days #10 tabs 11/30/20 methylcellulose (laxative) 500 mg 500 mg PO DAILY #30 tabs 05/16/21 tablet (Citrucel) prednisone 50 mg tablet 50 mg PO DAILY 5 days #5 tabs 11/27/21 ondansetron 4 mg disintegrating 4 mg PO Q8H PRN nausea and 06/25/22 tablet vomiting 5 days #15 tabs Allergies Allergy/AdvReac Type Severity Reaction Status Date / Time No Known Allergies Allergy Verified 06/22/22 13:11 Review of Systems Review of Systems: Yes all other systems are reviewed and are negative Gastrointestinal: Gastrointestinal: Reports nausea Neurologic: Denies Sensory deficit (Neuro) [facility] Past Medical History Medical History Arthritis Congenital foot abnormality Constipation Depression Hemorrhoid Hepatitis A immune Lumbar degenerative disc disease Nonimmune to hepatitis B virus Surgical History H/O colonoscopy History of esophagogastroduodenoscopy (EGD) History of hydrocelectomy History of repair of laceration Family History Family History Mother Liver cancer Maternal Uncle Alcoholism Social History Social History Household Members: None Housing: Apartment Do you presently have visiting nurse or other home services: Yes (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) Alcohol intake: current Alcohol intake frequency: does not drink Cigarette Packs Per Day: 1 Smoked in Last 30 Days: Yes Use of substances other than those prescribed or required for medical reasons: Yes Substance Use Type: Marijuana Advance Directives: No Advance Directives Information Provided: Yes Physical Exam Vital Signs: Vital Signs: Last Vital Signs Temp 98.8 F 06/25/22 09:25 Pulse 92 06/25/22 09:25 Resp 20 06/25/22 09:25 BP 117/69 06/25/22 09:25 Pulse Ox 95 06/25/22 09:25 O2 Del Method 06/25/22 09:25 BMI result Body Mass Index 26.6 Const: Nutritional Appearance: thin Orientation/consciousness: oriented to person and patient oriented x3 Limitations: no limitations HEENT: Head: Yes normal to inspection Ears: external ears normal General nose exam: Normal external nose present Mouth: Normal oral and palatal mucosa present and oropharynx normal Throat: Yes posterior oropharynx normal Eyes: General: appearance normal, both eyes and all related structures Neck: Other: supple Neck: Yes normal visual inspection Chest: Chest palpation & inspection: normal inspection of the chest Resp: Auscultation: clear to auscultation bilaterally Cardio: Jugular venous distension: no JVD Rate: regular rate Rhythm: regular rhythm Heart sounds: S1 normal heart sound present and S2 normal heart sound present GI: Inspection: Yes normal to inspection Palpation (GI): Soft to palpation, nontender and No hepatosplenomegaly present Auscultation: normal bowel sounds : General: Yes no CVA tenderness Back/Spine/Pelvis: Back: no CVA tenderness Skin: General skin exam: no rashes or lesions noted Neuro: General: oriented to person and patient oriented x3 Cranial nerves: Yes CN's II-XII intact bilaterally Motor exam (neuro): 5/5 motor strength present throughout Sensory Exam: No Sensory deficit (Neuro) Extrem: General: Yes normal to inspection Psych: Appearance: grossly normal Course Reevaluation(s) Reevaluation #1: patient hydrated will dc home on zofran. Abd nontender Time: 10:54 Medications Administered Generic Name Dose Route Start Last Admin Trade Name Freq PRN Reason Stop Dose Admin Sodium Chloride 500 mls @ 250 mls/hr 06/25/22 09:30 06/25/22 09:36 Ns IVCONT 06/25/22 11:29 250 mls/hr .Q2H [place] Administration Discontinued Medications Generic Name Dose Route Start Last Admin Trade Name Freq PRN Reason Stop Dose Admin Ondansetron HCl 4 mg 06/25/22 09:18 06/25/22 09:36 Ondansetron Hcl 4 Mg/2 Ml Vial IVPUSH 06/25/22 09:19 4 mg ONCE ONE Administration MDM - Nausea/Vomiting/Diarrhea Lab Data Result diagrams: 06/25/22 09:32 06/25/22 10:11 Labs: Lab Results 06/25/22 06/25/22 Range/Units 09:32 10:11 WBC 8.0 (4.8-10.8) X10*3/uL RBC 4.62 (4.60-5.80) X10*6/uL Hgb 14.3 (14.0-18.0) g/dl Hct 41.7 L (42.0-52.0) % MCV 90.3 (80.0-98.0) fL MCH 31.0 (27.0-33.0) pg MCHC 34.3 (31.0-36.0) g/dl RDW 13.6 (11.0-16.0) % Plt Count 312 (160-400) X10*3/uL MPV 9.4 (9.4-12.4) fL Immature Gran % (Auto) 0.2 (0.0-0.4) % Neut % (Auto) 75.5 H (45-73) % Lymph % (Auto) 12.9 L (20-40) % [place] % (Auto) 10.9 (2-11) % Eos % (Auto) 0.1 (0-4) % Baso % (Auto) 0.4 (0-2) % Lymph # (Auto) 1.0 L (1.2-4.9) X10*3/uL [place] # (Auto) 0.9 (0.1-1.2) X10*3/uL Eos # (Auto) 0.0 (0.0-0.4) X10*3/uL Baso # (Auto) 0.0 (0.0-0.2) X10*3/uL Abs Immat Gran (auto) 0.02 (0.00-0.03) X10*3/uL Absolute Neuts (auto) 6.1 (2.0-8.3) x10*3/uL Absolute Nucleated RBC 0.000 (0.0-0.012) X10*3/uL Nucleated RBC % (auto) 0.0 (0.0-0.2) /100WBC Sodium 140 (135-145) mmol/L Potassium 4.8 (3.3-5.1) mmol/L Chloride 104 (96-108) mmol/L Carbon Dioxide 23 (22-29) mmol/L Anion Gap 18 (12-20) BUN 23 H (9-16) mg/dL Creatinine 1.07 (0.5-1.4) mg/dL Estim Creat Clear Calc 65.4 Estimated GFR > 60 Random Glucose 91 (60-115) mg/dL Calcium 9.6 (8.4-10.2) mg/dL Total Bilirubin 0.7 (0.0-1.0) mg/dL Direct Bilirubin 0.3 (0.0-0.5) mg/dL AST 16 (5-37) U/L ALT 13 (0-40) U/L Alkaline Phosphatase 74 (39-117) U/L Total Protein 6.8 (6.5-8.0) g/dL Albumin 4.3 (3.5-5.0) g/dL Lipase 39 (8-78) U/L Discharge Plan Discharge Clinical Impression: Vomiting, Nausea Patient Disposition: Home, Self-Care Instructions: Acute Nausea and Vomiting (ED) Prescriptions: New ondansetron 4 mg tablet,disintegrating 4 mg PO Q8H PRN (Reason: nausea and vomiting) 5 Days Qty: 15 0RF No Action lidocaine 4 % adhesive patch,medicated 1 patch topical DAILY PRN (Reason: pain) Qty: 10 0RF Rx Instructions: may leave on for up to 12 hrs prednisone 20 mg tablet 40 mg PO DAILY 5 Days Qty: 10 0RF prednisone 50 mg tablet 50 mg PO DAILY 5 Days Qty: 5 0RF naproxen 500 mg tablet 500 mg PO BID cyclobenzaprine 5 mg tablet 5 mg PO TID PRN (Reason: Muscle Spasm) trazodone 150 mg tablet 150 mg PO BEDTIME PRN (Reason: Insomnia) hydrocortisone [Anusol-HC] 2.5 % cream with perineal applicator 1 appl [place] QID PRN (Reason: hemorrhoids) Qty: 30 2RF Citrucel 500 mg tablet 500 mg PO DAILY Qty: 30 6RF Referrals: Physician,Unknown J [Primary Care Provider] - 1 week
[2022-06-25 09:25] VITALS: BP 117/69; PULSE 92; RESP 20; TEMP 37.1; O2SAT 95
[2022-06-25 09:35] LABS: MANUAL DIFF FLAG NO
[2022-06-25] MEDS: ondansetron HCL 4 MG/2 ML VIAL IVPUSH (09:36)
[2022-06-25] MEDS: 0.9 % Sodium Chloride 500 ML 250 ML IVCONT (09:36)
[2022-06-25 09:47] LABS: Basophils Percent Auto 0.4 % (0-2); Eosinophils Percent Auto 0.1 % (0-4); Hematocrit 41.7 % (42.0-52.0); Hemoglobin 14.3 g/dl (14.0-18.0); Imm Gran Abs Auto 0.02 X10*3/uL (0.00-0.03); Imm Gran Pct Auto 0.2 % (0.0-0.4); Lymphocytes Percent Auto 12.9 % (20-40); Mean Corpuscular HGB Conc 34.3 g/dl (31.0-36.0); Mean Corpuscular Volume 90.3 fL (80.0-98.0); Mean Platelet Volume 9.4 fL (9.4-12.4); Monocytes Absolute Auto 0.9 X10*3/uL (0.1-1.2); Monocytes Percent Auto 10.9 % (2-11); Neutrophils Absolute Auto 6.1 x10*3/uL (2.0-8.3); Neutrophils Percent Auto 75.5 % (45-73); Platelet Count 312 X10*3/uL (160-400); Red Blood Count 4.62 X10*6/uL (4.60-5.80); Red Cell Distribution Width 13.6 % (11.0-16.0)
[2022-06-25 10:46] LABS: Alanine Aminotransferase 13 U/L (0-40); Albumin Level 4.3 g/dL (3.5-5.0); Alkaline Phosphatase 74 U/L (39-117); Anion Gap 18 (12-20); Aspartate Amino Transferase 16 U/L (5-37); Bilirubin Direct 0.3 mg/dL (0.0-0.5); Bilirubin Total 0.7 mg/dL (0.0-1.0); Blood Urea Nitrogen 23 mg/dL (9-16); Calcium 9.6 mg/dL (8.4-10.2); Carbon Dioxide 23 mmol/L (22-29); Chloride 104 mmol/L (96-108); Creatinine Clr Calc Pharmacy 65.4; Estimated Glomerular Filt Rate > 60; Glucose Random 91 mg/dL (60-115); Lipase 39 U/L (8-78); Potassium 4.8 mmol/L (3.3-5.1); Sodium 140 mmol/L (135-145); Total Protein 6.8 g/dL (6.5-8.0)
[2022-06-25 11:06] VITALS: BP 124/79; PULSE 89; RESP 16; O2SAT 97
== END 2022-06-25 11:10 | disposition home or self-care (01) ==
PROVIDERS: Emergency Provider Emergency Medicine
DX: R11.2 Nausea with vomiting, unspecified (principal); F12.90 Cannabis use, unspecified, uncomplicated; F17.210 Nicotine dependence, cigarettes, uncomplicated
CPT/HCPCS: 36415; 80048; 80076; 83690; 85025; 96374; 99284; J2405

== ENCOUNTER 2023-04-23 10:58 | Emergency (ER) | payer MEDICAID, SELFPAY ==
--- NOTE | ~2023-04-23 | XR_ITS ---
EXAMINATION: XR CHEST CLINICAL INFORMATION: Chest pain COMPARISON: 11/12/2017 TECHNIQUE: Frontal view of the chest was obtained. FINDINGS: Lungs are well-inflated and clear. Trachea is midline in position. No interstitial disease, consolidation or mass. No pleural effusion or pneumothorax. Cardiac silhouette and pulmonary vessels are normal in size. The mediastinum and steve have normal contour. Mild and moderate discovertebral degenerative changes of thoracic spine. Otherwise, the visualized bones and upper abdomen are unremarkable. XR/XR chest 1V IMPRESSION: No acute cardiopulmonary abnormality.
--- NOTE | 2023-04-23 11:00 | ECG_ITS ---
Test Reason : cp Blood Pressure : / mmHG Vent. Rate : 072 BPM Atrial Rate : 072 BPM P-R Int : 156 ms QRS Dur : 086 ms QT Int : 384 ms P-R-T Axes : 066 -02 033 degrees QTc Int : 420 ms Normal sinus rhythm Septal infarct , age undetermined Abnormal ECG When compared with ECG of 05-APR-2018 11:46, No significant change was found Referred By: Jimmy Burroughs Electronically Signed By:DALE JHAVERI
[2023-04-23 11:02] VITALS: BP 121/89; PULSE 85; RESP 18; TEMP 36.7; O2SAT 98; BMI 25.7
--- NOTE | 2023-04-23 11:04 | ED_ITS ---
HPI - General Adult General Chief complaint: General Medical Stated complaint: Chest Pain Related Data Home Medications Medication Instructions Recorded Confirmed cyclobenzaprine 5 mg tablet 5 mg PO TID PRN Muscle Spasm 06/25/20 08/15/20 naproxen 500 mg tablet 500 mg PO BID 06/25/20 08/15/20 trazodone 150 mg tablet 150 mg PO BEDTIME PRN Insomnia 06/25/20 08/15/20 Previous Rx's Medication Instructions Recorded hydrocortisone 2.5 % topical cream 1 appl [place] QID PRN hemorrhoids #30 10/01/20 with perineal applicator grams (Anusol-HC) lidocaine 4 % topical patch 1 patch topical DAILY PRN pain #10 11/30/20 ea prednisone 20 mg tablet 40 mg (2 x 20 mg) PO DAILY 5 days 11/30/20 #10 tabs methylcellulose (laxative) 500 mg 500 mg PO DAILY #30 tabs 05/16/21 tablet (Citrucel) prednisone 50 mg tablet 50 mg PO DAILY 5 days #5 tabs 11/27/21 ondansetron 4 mg disintegrating 4 mg PO Q8H PRN nausea and 06/25/22 tablet vomiting 5 days #15 tabs erythromycin 5 mg/gram (0.5 %) eye 0.5 inch ophthalmic (eye) QID 7 06/17/23 ointment days #3.5 grams loratadine 10 mg tablet 10 mg PO DAILY #30 tabs 07/14/23 Allergies Allergy/AdvReac Type Severity Reaction Status Date / Time No Known Allergies Allergy Verified 07/14/23 08:53 [facility] Past Medical History Medical History Constipation Hemorrhoid Nonimmune to hepatitis B virus Hepatitis A immune Lumbar degenerative disc disease Depression Congenital foot abnormality Arthritis Surgical History History of esophagogastroduodenoscopy (EGD) H/O colonoscopy History of hydrocelectomy History of repair of laceration Family History Family History Mother Liver cancer Maternal Uncle Alcoholism Social History Social History Household Members: None Housing: Apartment Do you presently have visiting nurse or 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 58-year-old male current daily smoker without other significant medical history presenting with complaints of substernal chest pressure, palpitations, shortness of breath that started suddenly this morning. Pain is intermittent in nature. Unable to tell me what makes it better worse. No significant cardiac history. Denies nausea, vomiting, numbness, tingling Physical exam: Patient comfortable appearing no acute distress. Stable vital signs Plan labs, EKG, troponin Medical Decision Making Lab Data 04/23/23 11:09 04/23/23 11:09 Labs: Lab Results 04/23/23 04/23/23 Range/Units 11:09 11:18 WBC 5.8 (4.8-10.8) X10*3/uL RBC 4.30 L (4.60-5.80) X10*6/uL Hgb 13.7 L (14.0-18.0) g/dl Hct 40.8 L (42.0-52.0) % MCV 94.9 (80.0-98.0) fL MCH 31.9 (27.0-33.0) pg MCHC 33.6 (31.0-36.0) g/dl RDW 14.3 (11.0-16.0) % Plt Count 305 (160-400) X10*3/uL MPV 9.2 L (9.4-12.4) fL Immature Gran % (Auto) 0.3 (0.0-0.4) % Neut % (Auto) 53.5 (45-73) % Lymph % (Auto) 26.8 (20-40) % Victoria % (Auto) 17.3 H (2-11) % Eos % (Auto) 1.6 (0-4) % Baso % (Auto) 0.5 (0-2) % Lymph # (Auto) 1.6 (1.2-4.9) X10*3/uL Victoria # (Auto) 1.0 (0.1-1.2) X10*3/uL Eos # (Auto) 0.1 (0.0-0.4) X10*3/uL Baso # (Auto) 0.0 (0.0-0.2) X10*3/uL Abs Immat Gran (auto) 0.02 (0.00-0.03) X10*3/uL Absolute Neuts (auto) 3.1 (2.0-8.3) x10*3/uL Absolute Nucleated RBC 0.000 (0.0-0.012) X10*3/uL Nucleated RBC % (auto) 0.0 (0.0-0.2) /100WBC D-Dimer High Sensitivty < 150 NG/ML Sodium 138 (135-145) mmol/L Potassium 4.7 (3.3-5.1) mmol/L Chloride 105 (96-108) mmol/L Carbon Dioxide 26 (22-29) mmol/L Anion Gap 12 (12-20) BUN 13 (9-16) mg/dL Creatinine 0.92 (0.5-1.4) mg/dL Estim Creat Clear Calc 72.3 Estimated GFR > 60 Random Glucose 94 (60-115) mg/dL Calcium 9.1 (8.4-10.2) mg/dL Magnesium 2.4 (1.6-2.6) mg/dL Total Bilirubin 0.5 (0.0-1.0) mg/dL AST 18 (5-37) U/L ALT 14 (0-40) U/L Alkaline Phosphatase 70 (39-117) U/L Troponin I High Sens < 2.7 (<3.5-35.0) ng/L Total Protein 6.9 (6.5-8.0) g/dL Albumin 4.2 (3.5-5.0) g/dL COVID-19 (CESAR) Negative (Negative) COVID-19 Clin Com See Note Discharge Plan Discharge Clinical Impression: Eloped from emergency department Patient Disposition: Left W/O Completing Treatment Prescriptions: No Action lidocaine 4 % adhesive patch,medicated 1 patch topical DAILY PRN (Reason: pain) Qty: 10 0RF Rx Instructions: may leave on for up to 12 hrs prednisone 20 mg tablet 40 mg PO DAILY 5 Days Qty: 10 0RF prednisone 50 mg tablet 50 mg PO DAILY 5 Days Qty: 5 0RF ondansetron 4 mg tablet,disintegrating 4 mg PO Q8H PRN (Reason: nausea and vomiting) 5 Days Qty: 15 0RF erythromycin 5 mg/gram (0.5 %) ointment 0.5 inch ophthalmic (eye) QID 7 Days Qty: 3.5 0RF loratadine 10 mg tablet 10 mg PO DAILY Qty: 30 0RF naproxen 500 mg tablet 500 mg PO BID cyclobenzaprine 5 mg tablet 5 mg PO TID PRN (Reason: Muscle Spasm) trazodone 150 mg tablet 150 mg PO BEDTIME PRN (Reason: Insomnia) hydrocortisone [Anusol-HC] 2.5 % cream with perineal applicator 1 appl [place] QID PRN (Reason: hemorrhoids) Qty: 30 2RF Citrucel 500 mg tablet 500 mg PO DAILY Qty: 30 6RF Discharge Date/Time: 04/23/23 16:28
[2023-04-23 11:13] LABS: MANUAL DIFF FLAG NO
[2023-04-23 11:15] LABS: Basophils Percent Auto 0.5 % (0-2); Eosinophils Absolute Auto 0.1 X10*3/uL (0.0-0.4); Eosinophils Percent Auto 1.6 % (0-4); Hematocrit 40.8 % (42.0-52.0); Hemoglobin 13.7 g/dl (14.0-18.0); Imm Gran Abs Auto 0.02 X10*3/uL (0.00-0.03); Imm Gran Pct Auto 0.3 % (0.0-0.4); Lymphocytes Absolute Auto 1.6 X10*3/uL (1.2-4.9); Lymphocytes Percent Auto 26.8 % (20-40); Mean Corpuscular HGB Conc 33.6 g/dl (31.0-36.0); Mean Corpuscular Hemoglobin 31.9 pg (27.0-33.0); Mean Corpuscular Volume 94.9 fL (80.0-98.0); Mean Platelet Volume 9.2 fL (9.4-12.4); Monocytes Percent Auto 17.3 % (2-11); Neutrophils Absolute Auto 3.1 x10*3/uL (2.0-8.3); Neutrophils Percent Auto 53.5 % (45-73); Platelet Count 305 X10*3/uL (160-400); Red Cell Distribution Width 14.3 % (11.0-16.0); White Blood Count 5.8 X10*3/uL (4.8-10.8)
[2023-04-23 11:30] LABS: Alanine Aminotransferase 14 U/L (0-40); Albumin Level 4.2 g/dL (3.5-5.0); Alkaline Phosphatase 70 U/L (39-117); Anion Gap 12 (12-20); Aspartate Amino Transferase 18 U/L (5-37); Bilirubin Total 0.5 mg/dL (0.0-1.0); Blood Urea Nitrogen 13 mg/dL (9-16); Calcium 9.1 mg/dL (8.4-10.2); Carbon Dioxide 26 mmol/L (22-29); Chloride 105 mmol/L (96-108); Creatinine Clr Calc Pharmacy 72.3; Estimated Glomerular Filt Rate > 60; Glucose Random 94 mg/dL (60-115); Magnesium 2.4 mg/dL (1.6-2.6); Potassium 4.7 mmol/L (3.3-5.1); Sodium 138 mmol/L (135-145); Total Protein 6.9 g/dL (6.5-8.0)
[2023-04-23 11:39] LABS: D Dimer High Sensitivity < 150 NG/ML
[2023-04-23 11:39] LABS: Troponin-I High Sensitivity < 2.7 ng/L (<3.5-35.0)
[2023-04-23 11:50] LABS: COVID-19 Test Negative (Negative); IDNOW Serial# BCCEAD1C
== END 2023-04-23 16:28 | disposition left against medical advice (07) ==
PROVIDERS: Physician Assistant; Emergency Provider Emergency Medicine
DX: R07.89 Other chest pain (principal); R06.02 Shortness of breath; F17.200 Nicotine dependence, unspecified, uncomplicated; Z20.822 Contact with and (suspected) exposure to COVID-19; Z20.828 Contact with and (suspected) exposure to other viral communicable diseases; Z79.899 Other long term (current) drug therapy; Z71.6 Tobacco abuse counseling
CPT/HCPCS: 36415; 71045; 80053; 83735; 84484; 85025; 85379; 87635; 93005; 99283

== ENCOUNTER 2023-06-03 11:29 | Emergency (ER) | payer MEDICAID, SELFPAY ==
--- NOTE | ~2023-06-03 | XR_ITS ---
Indication: Trauma EXAMINATION: Lumbar sacral spine, thoracic spine, chest x-ray with ribs. Single image of the chest is compared to previous dated 04/23/2023. Findings; There is no pneumothorax. There is no effusion. The mediastinal contours are within normal limits and comparable to previous. 3 detailed images of the right ribs do not demonstrate evidence for fracture. 3 views of the lumbar sacral spine are compared to previous dated 11/30/2020. No acute finding. Degenerative change most noted L5-S1. No evidence of listhesis or compression injury. Once again scoliosis convex right apex at L3. Degenerative changes likely in the posterior elements in the lower lumbar region. 4 views submitted of the thoracic spine. Comparison sagittal imaging from just CT dated 06/03/2023. Degenerative changes. No acute finding. No compression injury. No listhesis. XR/XR thoracic spine 3V IMPRESSION: Multiple studies. No acute finding.
--- NOTE | ~2023-06-03 | XR_ITS ---
Indication: Trauma EXAMINATION: Lumbar sacral spine, thoracic spine, chest x-ray with ribs. Single image of the chest is compared to previous dated 04/23/2023. Findings; There is no pneumothorax. There is no effusion. The mediastinal contours are within normal limits and comparable to previous. 3 detailed images of the right ribs do not demonstrate evidence for fracture. 3 views of the lumbar sacral spine are compared to previous dated 11/30/2020. No acute finding. Degenerative change most noted L5-S1. No evidence of listhesis or compression injury. Once again scoliosis convex right apex at L3. Degenerative changes likely in the posterior elements in the lower lumbar region. 4 views submitted of the thoracic spine. Comparison sagittal imaging from just CT dated 06/03/2023. Degenerative changes. No acute finding. No compression injury. No listhesis. XR/XR lumbar spine 2-3V IMPRESSION: Multiple studies. No acute finding.
--- NOTE | ~2023-06-03 | XR_ITS ---
Indication: Trauma EXAMINATION: Lumbar sacral spine, thoracic spine, chest x-ray with ribs. Single image of the chest is compared to previous dated 04/23/2023. Findings; There is no pneumothorax. There is no effusion. The mediastinal contours are within normal limits and comparable to previous. 3 detailed images of the right ribs do not demonstrate evidence for fracture. 3 views of the lumbar sacral spine are compared to previous dated 11/30/2020. No acute finding. Degenerative change most noted L5-S1. No evidence of listhesis or compression injury. Once again scoliosis convex right apex at L3. Degenerative changes likely in the posterior elements in the lower lumbar region. 4 views submitted of the thoracic spine. Comparison sagittal imaging from just CT dated 06/03/2023. Degenerative changes. No acute finding. No compression injury. No listhesis. XR/XR ribs RT min 3V w CXR1V IMPRESSION: Multiple studies. No acute finding.
[2023-06-03 12:08] VITALS: BP 126/78; PULSE 90; RESP 18; TEMP 36.8; O2SAT 97; BMI 28.4
--- NOTE | 2023-06-03 12:11 | ED_ITS ---
HPI - Fall General Chief Complaint: Fall Stated Complaint: fall Time Seen by Provider: 06/03/23 12:23 Source: patient Mode of arrival: ambulatory Limitations: language barrier History of Present Illness HPI Narrative: Patient is a 58 year old assigned male at with no reported medical history presenting to the emergency department today with back pain after a trip and fall. Patient states that earlier today he tripped and fell, hurting his back. Patient states that he did not hit his head or have any loss of consciousness. Patient states that he saw his PCP who gave him pain medication but he wants to having some imaging done. Patient denies any dizziness, lightheadedness, abdominal pain, nausea, vomiting, fever, chills, blurry vision, double vision, loss of vision, chest pain, difficulty breathing, shortness of breath, night sweats, pain with urination, increased urinary frequency, increased urinary urgency, blood in his urine or stool, syncope or a near syncopal episode, recent trauma or falls, bowel incontinence, bladder incontinence, bowel retention, bladder retention, or any other complaints at this time. Onset (ago): hour(s) Loss of consciousness: none Quality: dull Associated symptoms (after fall): denies Related Data Home Medications Medication Instructions Recorded Confirmed cyclobenzaprine 5 mg tablet 5 mg PO TID PRN Muscle Spasm 06/25/20 08/15/20 naproxen 500 mg tablet 500 mg PO BID 06/25/20 08/15/20 trazodone 150 mg tablet 150 mg PO BEDTIME PRN Insomnia 06/25/20 08/15/20 Previous Rx's Medication Instructions Recorded hydrocortisone 2.5 % topical cream 1 appl [place] QID PRN hemorrhoids #30 10/01/20 with perineal applicator grams (Anusol-HC) lidocaine 4 % topical patch 1 patch topical DAILY PRN pain #10 11/30/20 ea prednisone 20 mg tablet 40 mg (2 x 20 mg) PO DAILY 5 days 11/30/20 #10 tabs methylcellulose (laxative) 500 mg 500 mg PO DAILY #30 tabs 05/16/21 tablet (Citrucel) prednisone 50 mg tablet 50 mg PO DAILY 5 days #5 tabs 11/27/21 ondansetron 4 mg disintegrating 4 mg PO Q8H PRN nausea and 06/25/22 tablet vomiting 5 days #15 tabs Allergies Allergy/AdvReac Type Severity Reaction Status Date / Time No Known Allergies Allergy Verified 06/22/22 13:11 Review of Systems Constitutional: Constitutional: Reports no additional constitutional complaints, Denies chills, Denies fever(s) and Denies night sweats Eyes: Eyes: Reports no additional eye complaints, Denies blurry vision, Denies change in vision, Denies diplopia, Denies eye discharge, Denies loss of vision and Denies eye pain ENT: Denies dizziness Cardiovascular: Cardiovascular: Reports no additional cardiovascular complaints, Denies chest pain, Denies lightheadedness, Denies Loss of Consciousness and Denies dyspnea Respiratory: Respiratory: Reports no additional respiratory complaints and Denies dyspnea Gastrointestinal: Gastrointestinal: Reports no additional gastrointestinal complaints, Denies abdominal pain, Denies melena, Denies hematochezia, Denies change in bowel habits and Denies change in stool character Genitourinary: Genitourinary: Reports no additional male genitourinary complaints, Denies hematuria, Denies oliguria, Denies difficulty urinating, Denies dysuria, Denies urinary frequency, Denies urinary hesitancy, Denies urinary incontinence and Denies urinary urgency Musculoskeletal: Musculoskeletal: Reports no additional musculoskeletal complaints, Reports back pain, Denies numbness and Denies tingling Neurologic: Denies dizziness, Denies loss of vision, Denies numbness and Denies tingling Psychiatric: Psychiatric: Reports no additional psychiatric complaints Endocrine: Endocrine: Reports no additional endocrine complaints Hematologic/Lymphatic: Hematologic/Lymphatic: Reports no additional hematologic/lymphatic complaints Allergic/Immunologic: Allergic/Immunologic: Reports no additional allergic/immunologic complaints PMFSH Past Medical History Attestation statement: The following information was validated with the patient. 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) Alcohol intake: current Alcohol intake frequency: does not drink Cigarette Packs Per Day: 1 Substance Use Type: Marijuana Advance Directives: No Advance Directives Information Provided: No Physical Exam Vital Signs: Vital Signs: Last Vital Signs Temp 97.9 F 06/03/23 14:14 Pulse 63 06/03/23 14:14 Resp 14 06/03/23 14:14 BP 111/72 06/03/23 14:14 Pulse Ox 98 06/03/23 14:14 O2 Del Method Room Air 06/03/23 14:14 BMI result Body Mass Index 28.4 Const: General: cooperative, no acute distress, alert and awake Nutritional Appearance: well nourished Orientation/consciousness: patient oriented x3 Limitations: no limitations HEENT: Head: Yes normal to inspection and Yes atraumatic Ears: hearing grossly normal bilaterally and external ears normal General nose exam: Normal external nose present, no nasal discharge noted and no epistaxis Face and sinus: Yes normal facial exam, No abrasion and No laceration Mouth: Normal oral and palatal mucosa present, no drooling and no muffled voice Eyes: General: appearance normal, both eyes and all related structures Periorbital: periorbital findings normal Eyelids: Yes eyelids normal Conjunctivae: conjunctivae normal Pupils: Equal, round and reactive pupils present EOM: EOMs intact bilaterally Neck: Neck: Yes normal visual inspection, Yes full ROM and Yes no lymphadenopathy Chest: Chest palpation & inspection: normal inspection of the chest Resp: Effort & Inspection: normal respiratory effort and able to speak in complete sentences GI: Inspection: Yes normal to inspection : General: Yes no CVA tenderness Back/Spine/Pelvis: Back: no CVA tenderness Cervical Spine: normal cervical lordosis and cervical ROM normal Thoracic/Lumbar Spine: thoracic and lumbar spine normal to inspection and thoraco-lumbar ROM normal Neuro: General: patient oriented x3 and moves all extremities Cranial nerves: Yes Equal, round and reactive pupils present Cognition (Neuro): normal cognition Motor exam (neuro): 5/5 motor strength present throughout Sensory Exam: Normal double simultaneous stimulation for sensation Coordination: [id number] test normal Extrem: General: Yes normal to inspection, Yes full ROM and Yes capillary refill normal Psych: Appearance: grossly normal Mental Status: mental status grossly normal Affect: normal affect Attitude: cooperative Thought process: Normal thought process present Thought content: Normal thought content present Insight: Good insight present (Psych) Course Course Course Narrative: Patient complains of pain in the right ribs and mid back at after fall on the floor after he tripped and fell from standing height onto his right ribs On exam the right ribs are tender, there is some mid back tenderness, no head strike no headache no neck pain denies any other injury This is rapid medical exam done in triage pending full evaluation by provider in the ER for full history and physical, review of all results and disposition Medical Decision Making Medical Decision Making MDM Narrative: Patient is a 58 year old assigned male at with no reported medical history presenting to the emergency department today with back pain. Patient's physical exam was unremarkable. Patient's thoracic, lumbar, and rib x-rays showed no acute process. I explained my physical exam findings as well as all test results to the patient. I answered all questions asked by the patient. I stressed the importance of the patient taking his medication as prescribed. I stressed the importance of the patient following up with his primary care provider. I stressed the importance of the patient returning to the emergency department immediately if his symptoms were to worsen or if he were to develop any dizziness, shortness of breath, difficulty breathing, chest pain, blurry vision, loss of vision, nausea, vomiting, abdominal pain, fever, chills, back pain, or any other complaints. Patient verbalized agreement and understanding with this treatment plan and discharge. Differential Diagnosis Differential Diagnoses: The differential diagnosis associated with the presentation includes Fall Back pain Rib pain Independent Interpretation I performed an independent interpretation of an: Plain X-Ray Interpretation: My interpretation is in agreement with the radiologist's impression of these im aging studies. EXAMINATION: Lumbar sacral spine, thoracic spine, chest x-ray with ribs. Single image of the chest is compared to previous dated 04/23/2023. Findings; There is no pneumothorax. There is no effusion. The mediastinal contours are within normal limits and comparable to previous. 3 detailed images of the right ribs do not demonstrate evidence for fracture. 3 views of the lumbar sacral spine are compared to previous dated 11/30/2020. No acute finding. Degenerative change most noted L5-S1. No evidence of listhesis or compression injury. Once again scoliosis convex right apex at L3. Degenerative changes likely in the posterior elements in the lower lumbar region. 4 views submitted of the thoracic spine. Comparison sagittal imaging from just CT dated 06/03/2023. Degenerative changes. No acute finding. No compression injury. No listhesis. XR/XR thoracic spine 3V IMPRESSION: Multiple studies. No acute finding. Dictated By: Sam Esqueda MD Signed By: Electronically signed by Sam Esqueda MD 06/03/2023 1418 Radiology Impression Discussion of test interpretation with radiology: I have reviewed the radiologist's reading. Discharge Plan Discharge Clinical Impression: Fall Patient Disposition: Home, Self-Care Instructions: Fall Prevention (ED) Additional Instructions: Follow up with your primary care provider. Return to the emergency department immediately if your symptoms worsen or if you develop any dizziness, shortness of breath, difficulty breathing, chest pain, blurry vision, loss of vision, nausea, vomiting, abdominal pain, fever, chills, back pain, or any other complaints. Prescriptions: No Action lidocaine 4 % adhesive patch,medicated 1 patch topical DAILY PRN (Reason: pain) Qty: 10 0RF Rx Instructions: may leave on for up to 12 hrs prednisone 20 mg tablet 40 mg PO DAILY 5 Days Qty: 10 0RF prednisone 50 mg tablet 50 mg PO DAILY 5 Days Qty: 5 0RF ondansetron 4 mg tablet,disintegrating 4 mg PO Q8H PRN (Reason: nausea and vomiting) 5 Days Qty: 15 0RF naproxen 500 mg tablet 500 mg PO BID cyclobenzaprine 5 mg tablet 5 mg PO TID PRN (Reason: Muscle Spasm) trazodone 150 mg tablet 150 mg PO BEDTIME PRN (Reason: Insomnia) hydrocortisone [Anusol-HC] 2.5 % cream with perineal applicator 1 appl [place] QID PRN (Reason: hemorrhoids) Qty: 30 2RF Citrucel 500 mg tablet 500 mg PO DAILY Qty: 30 6RF Referrals: [facility] [Primary Care Provider] - Stand Alone Forms: Work/School Release Interventions: ED Discharge Assessment Last Done: 06/03/23 14:55 Discharge Date/Time: 06/03/23 14:57 Print Language: Tamazight
[2023-06-03 14:14] VITALS: BP 111/72; PULSE 63; RESP 14; TEMP 36.6; O2SAT 98
== END 2023-06-03 14:57 | disposition home or self-care (01) ==
PROVIDERS: Emergency Provider Emergency Medicine
DX: S39.92XA Unspecified injury of lower back, initial encounter (principal); S29.9XXA Unspecified injury of thorax, initial encounter; R07.81 Pleurodynia; M54.6 Pain in thoracic spine; W01.0XXA Fall on same level from slipping, tripping and stumbling without subsequent striking against object, initial encounter; Y93.9 Activity, unspecified; Y92.9 Unspecified place or not applicable; Y99.9 Unspecified external cause status; Z79.899 Other long term (current) drug therapy
CPT/HCPCS: 71101; 72072; 72100; 99283

== ENCOUNTER 2023-06-17 12:57 | Emergency (ER) | payer MEDICAID, SELFPAY ==
[2023-06-17 13:38] VITALS: BP 121/77; PULSE 72; RESP 18; TEMP 36.9; O2SAT 96; BMI 24.0
[2023-06-17] MEDS: Tetracaine HCl/PF 0.5% Oph Sol 4 ML DROPS 1 DROP EYE-BOTH (13:58)
[2023-06-17] MEDS: Fluorescein Sodium STRIP 1 STRIP EYE-BOTH (13:58)
--- NOTE | 2023-06-17 14:05 | PC.NURSE ---
Patient brought to eye wash station and washed his eyes out. Eye acuity test done.
--- NOTE | 2023-06-17 14:12 | ED.EYEPROB ---
HPI - Eye Problem General Chief complaint: Eye Problems Stated complaint: Eye Issues Time Seen by Provider: 06/17/23 13:36 Source: patient, RN notes reviewed and old records reviewed Mode of arrival: ambulatory History of Present Illness HPI Narrative: 58-year-old male with past medical history of hepatitis, depression, arthritis, presenting to the ED complaining of foreign body sensation to bilateral eyes x3 days s/p walking the street & wind blowing and feeling something go into eye. Suspects dirt. States sees black foreign body. Admits to wearing glasses, no contacts. Denies direct injury/trauma or fall. Reports tearing. Denies vision loss, nausea/vomiting MD chief complaint: eye pain and foreign body Related Data Home Medications Medication Instructions Recorded Confirmed cyclobenzaprine 5 mg tablet 5 mg PO TID PRN Muscle Spasm 06/25/20 08/15/20 naproxen 500 mg tablet 500 mg PO BID 06/25/20 08/15/20 trazodone 150 mg tablet 150 mg PO BEDTIME PRN Insomnia 06/25/20 08/15/20 Previous Rx's Medication Instructions Recorded hydrocortisone 2.5 % topical cream 1 appl NC QID PRN hemorrhoids #30 10/01/20 with perineal applicator grams (Anusol-HC) lidocaine 4 % topical patch 1 patch topical DAILY PRN pain #10 11/30/20 ea prednisone 20 mg tablet 40 mg (2 x 20 mg) PO DAILY 5 days 11/30/20 #10 tabs methylcellulose (laxative) 500 mg 500 mg PO DAILY #30 tabs 05/16/21 tablet (Citrucel) prednisone 50 mg tablet 50 mg PO DAILY 5 days #5 tabs 11/27/21 ondansetron 4 mg disintegrating 4 mg PO Q8H PRN nausea and 06/25/22 tablet vomiting 5 days #15 tabs erythromycin 5 mg/gram (0.5 %) eye 0.5 inch ophthalmic (eye) QID 7 06/17/23 ointment days #3.5 grams Allergies Allergy/AdvReac Type Severity Reaction Status Date / Time No Known Allergies Allergy Verified 06/22/22 13:11 Review of Systems Review of Systems: Constitutional: No Fever, No Chills, No Fatigue, No Malaise ENT/Mouth: No Ear Pain, No Nasal Congestion, No Sinus Pain, No Hoarseness, No sore throat, No Rhinorrhea, No Swallowing Difficulty Eyes: + Eye Pain, No Swelling, No Redness, + Foreign Body sensation, + Discharge, No Vision Changes Cardiovascular: No Chest Pain, No SOB, Respiratory: No Cough, No Dyspnea Musculoskeletal: No joint pain, No Myalgias, No Joint Swelling Skin: No Skin Lesions, No rash Neuro: No Weakness, No Numbness, No Paresthesias, No Loss of Consciousness, No Dizziness, No Headache Yes all other systems are reviewed and are negative Constitutional: Constitutional: Reports as per [facility] Past Medical History Attestation statement: The following information was validated with the patient. Source: old records reviewed Medical History Hemorrhoid Constipation Nonimmune to hepatitis B virus Hepatitis A immune Lumbar degenerative disc disease Depression Congenital foot abnormality Arthritis Surgical History History of esophagogastroduodenoscopy (EGD) H/O colonoscopy History of hydrocelectomy History of repair of laceration Family History Family History Mother Liver cancer Maternal Uncle Alcoholism Social History Social History Household Members: None Housing: Apartment Do you presently have visiting nurse or other home services: Yes ([employer]- 1 hour daily) Alcohol intake: current Alcohol intake frequency: does not drink Cigarette Packs Per Day: 1 Substance Use Type: Marijuana Advance Directives: No Advance Directives Information Provided: Yes Physical Exam Vital Signs: Vital Signs: Last Vital Signs Temp 98.5 F 06/17/23 13:38 Pulse 72 06/17/23 13:38 Resp 18 06/17/23 13:38 BP 121/77 06/17/23 13:38 Pulse Ox 96 06/17/23 13:38 O2 Del Method Room Air 06/17/23 13:38 BMI result Body Mass Index 24.0 Const: General: cooperative, healthy appearing and no acute distress Orientation/consciousness: patient oriented x3 Limitations: no limitations HEENT: Head: Yes normal to inspection and Yes atraumatic Ears: hearing grossly normal bilaterally General nose exam: Normal external nose present Face and sinus: Yes normal facial exam Eyes: Other: Visual acuity 20/50 bilaterally, 20/40 together No appreciable foreign body. No fluorescein uptake. EOMs intact without entrapment General: appearance normal, both eyes and all related structures Periorbital: periorbital findings normal Eyelids: Yes eyelids normal Conjunctivae: conjunctivae normal Sclerae: sclerae normal Corneas: corneas normal and fluorescein used Pupils: Equal, round and reactive pupils present EOM: EOMs intact bilaterally and no movement deficit Direct Ophthalmoscopy: normal light reflex and no photophobia Neck: Neck: Yes normal visual inspection and Yes no meningeal signs Resp: Effort & Inspection: normal respiratory effort and no respiratory distress Cardio: Rate: regular rate Skin: Rashes: no rashes Wounds: no wounds Neuro: General: patient oriented x3, tone normal and no meningeal signs Cranial nerves: Yes CN's II-XII intact bilaterally and Yes Equal, round and reactive pupils present Gait exam (Neuro): Normal gait present Extrem: General: Yes normal to inspection Course Course Course Narrative: After fluorescein staining patient used eye wash station. Recommended close Ophthalmology follow-up Results discussed with patient including worrisome signs and symptoms and strict return precautions, and when to return to the emergency department. They verbalized understanding and feel safe for discharge at this time. Medications Administered Discontinued Medications Generic Name Dose Route Start Last Admin Trade Name Scottq PRN Reason Stop Dose Admin Fluorescein Sodium 1 strip 06/17/23 13:44 06/17/23 13:58 Fluorescein Sodium Strip EYE-BOTH 06/17/23 13:45 1 strip ONCE ONE Administration Tetracaine HCl 1 drop 06/17/23 13:44 06/17/23 13:58 Tetracaine Hcl/Pf 0.5% Oph Adela 4 Ml Drops EYE-BOTH 06/17/23 13:45 1 drop ONCE ONE Administration Medical Decision Making Medical Decision Making [facility] Narrative: 58-year-old male with past medical history of hepatitis, depression, arthritis, presenting to the ED complaining of foreign body sensation to bilateral eyes x3 days s/p walking the street & wind blowing and feeling something go into eye. On exam vital signs stable, NAD, nontoxic appearing, physical exam as noted above. Visual acuity 20/50 bilaterally without corrective lenses. No appreciable corneal or conjunctival abnormality, foreseen use without uptake. No evidence of ulceration or abrasion. EOM intact without entrapment. Concern for foreign body/small abrasions. No evidence of ulceration. Low suspicion for blowout fracture Plan: Staining, visual acuity, eye wash station Please refer to course for remaining clinical decision making, interpretation of labs/imaging results, and discussions with consultants and/or family members. Differential Diagnosis Differential Diagnoses: The differential diagnosis associated with the presentation includes As above External Record Review External record reviewed: Inpatient record, Office record, Outpatient record, Prior outpatient labs, Prior outpatient radiology, Primary care record and Outside ED record Tests considered The following testing was considered but not selected: As above Discharge Plan Discharge Clinical Impression: Foreign body sensation, bilateral eyes Patient Disposition: Home, Self-Care Instructions: Eye Foreign Body (ED) Additional Instructions: Please use erythromycin ointment as prescribed You need to follow-up with ophthalmology If symptoms persist or worsen you have vision loss, fevers/chills or nausea/vomiting return to the ED Utilice susan?ento de eritromicina seg?n lo prescrito. Necesitas seguimiento con oftalmolog?a. Si los s?ntomas persisten o empeoran, tiene p?rdida de visi?n, fiebre/escalofr?os o n?useas/v?mitos, regrese al servicio de urgencias. Prescriptions: New erythromycin 5 mg/gram (0.5 %) ointment 0.5 inch ophthalmic (eye) QID 7 Days Qty: 3.5 0RF No Action lidocaine 4 % adhesive patch,medicated 1 patch topical DAILY PRN (Reason: pain) Qty: 10 0RF Rx Instructions: may leave on for up to 12 hrs prednisone 20 mg tablet 40 mg PO DAILY 5 Days Qty: 10 0RF prednisone 50 mg tablet 50 mg PO DAILY 5 Days Qty: 5 0RF ondansetron 4 mg tablet,disintegrating 4 mg PO Q8H PRN (Reason: nausea and vomiting) 5 Days Qty: 15 0RF naproxen 500 mg tablet 500 mg PO BID cyclobenzaprine 5 mg tablet 5 mg PO TID PRN (Reason: Muscle Spasm) trazodone 150 mg tablet 150 mg PO BEDTIME PRN (Reason: Insomnia) hydrocortisone [Anusol-HC] 2.5 % cream with perineal applicator 1 appl NC QID PRN (Reason: hemorrhoids) Qty: 30 2RF Citrucel 500 mg tablet 500 mg PO DAILY Qty: 30 6RF Referrals: Erick Nuñez [Physician] - 5 days Print Language: Occitan
== END 2023-06-17 14:27 | disposition home or self-care (01) ==
PROVIDERS: Emergency Provider Emergency Medicine
DX: R09.A2 Foreign body sensation, throat (principal); H57.13 Ocular pain, bilateral; Z79.899 Other long term (current) drug therapy
CPT/HCPCS: 99282; 99283

== ENCOUNTER 2023-07-14 08:39 | Emergency (ER) | payer MEDICAID, SELFPAY ==
[2023-07-14 08:54] VITALS: BP 121/75; PULSE 89; RESP 18; TEMP 36.9; O2SAT 94; BMI 23.3
--- NOTE | 2023-07-14 09:31 | ED.GENADULT ---
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 Patient states that his eyes have been bothering for weeks. States that he was seen previously and got an antibiotic ointment but it didn't resolve the issue. Patient denies any dizziness, lightheadedness, abdominal pain, nausea, vomiting, fever, chills, blurry vision, double vision, loss of vision, chest pain, difficulty breathing, shortness of breath, back pain, night sweats, pain with urination, increased urinary frequency, increased urinary urgency, blood in his urine or stool, syncope or a near syncopal episode, recent trauma or falls, bowel incontinence, bladder incontinence, bowel retention, bladder retention, or any other complaints at this time. Onset (ago): week(s) Location: eyes, left and right Radiation: non-radiation Severity: mild Severity scale (1-10): 3 Relieving factors: none Exacerbating factors: none Associated symptoms: denies other symptoms Treatments prior to arrival: other (antibiotic ointment) Related Data Home Medications Medication Instructions Recorded Confirmed cyclobenzaprine 5 mg tablet 5 mg PO TID PRN Muscle Spasm 06/25/20 08/15/20 naproxen 500 mg tablet 500 mg PO BID 06/25/20 08/15/20 trazodone 150 mg tablet 150 mg PO BEDTIME PRN Insomnia 06/25/20 08/15/20 Previous Rx's Medication Instructions Recorded hydrocortisone 2.5 % topical cream 1 appl MI QID PRN hemorrhoids #30 10/01/20 with perineal applicator grams (Anusol-HC) lidocaine 4 % topical patch 1 patch topical DAILY PRN pain #10 11/30/20 ea prednisone 20 mg tablet 40 mg (2 x 20 mg) PO DAILY 5 days 11/30/20 #10 tabs methylcellulose (laxative) 500 mg 500 mg PO DAILY #30 tabs 05/16/21 tablet (Citrucel) prednisone 50 mg tablet 50 mg PO DAILY 5 days #5 tabs 11/27/21 ondansetron 4 mg disintegrating 4 mg PO Q8H PRN nausea and 06/25/22 tablet vomiting 5 days #15 tabs erythromycin 5 mg/gram (0.5 %) eye 0.5 inch ophthalmic (eye) QID 7 06/17/23 ointment days #3.5 grams loratadine 10 mg tablet 10 mg PO DAILY #30 tabs 07/14/23 Allergies Allergy/AdvReac Type Severity Reaction Status Date / Time No Known Allergies Allergy Verified 07/14/23 08:53 Review of Systems Constitutional: Constitutional: Reports no additional constitutional complaints, Denies chills, Denies fever(s) and Denies night sweats Eyes: Eyes: Reports no additional eye complaints, Denies blurry vision, Denies change in vision, Denies diplopia, Denies eye discharge, Reports irritation, Denies loss of vision and Denies eye pain ENT: Denies dizziness Cardiovascular: Cardiovascular: Reports no additional cardiovascular complaints, Denies chest pain, Denies lightheadedness, Denies Loss of Consciousness and Denies dyspnea Respiratory: Respiratory: Reports no additional respiratory complaints and Denies dyspnea Gastrointestinal: Gastrointestinal: Reports no additional gastrointestinal complaints, Denies abdominal pain, Denies melena, Denies hematochezia, Denies change in bowel habits and Denies change in stool character Genitourinary: Genitourinary: Reports no additional male genitourinary complaints, Denies hematuria, Denies oliguria, Denies difficulty urinating, Denies dysuria, Denies urinary frequency, Denies urinary hesitancy, Denies urinary incontinence and Denies urinary urgency Musculoskeletal: Musculoskeletal: Reports no additional musculoskeletal complaints, Denies numbness and Denies tingling Neurologic: Denies dizziness, Denies loss of vision, Denies numbness and Denies tingling Psychiatric: Psychiatric: Reports no additional psychiatric complaints Endocrine: Endocrine: Reports no additional endocrine complaints Hematologic/Lymphatic: Hematologic/Lymphatic: Reports no additional hematologic/lymphatic complaints Allergic/Immunologic: Allergic/Immunologic: Reports no additional allergic/immunologic complaints PMFSH Past Medical History Attestation statement: The following information was validated with the patient. Source: old records reviewed and nursing notes reviewed Medical History Constipation Hemorrhoid Nonimmune to hepatitis B virus Hepatitis A immune Lumbar degenerative disc disease Depression Congenital foot abnormality Arthritis Surgical History History of esophagogastroduodenoscopy (EGD) H/O colonoscopy History of hydrocelectomy History of repair of laceration Family History Family History Mother Liver cancer Maternal Uncle Alcoholism Social History Social History Household Members: None Housing: Apartment Do you presently have visiting nurse or other home services: Yes ([employer]- 1 hour daily) Alcohol intake: current Alcohol intake frequency: does not drink Cigarette Packs Per Day: 1 Smoked in Last 30 Days: Yes Substance Use Type: Marijuana Substance Use Frequency: Daily Advance Directives: No Advance Directives Information Provided: No Physical Exam ED Vital Signs: Vital Signs - 24 hr 07/14/23 08:54 07/14/23 09:46 Temperature 98.4 F 98 F Pulse Rate 89 80 Respiratory Rate 18 18 Blood Pressure 121/75 118/60 Pulse Oximetry 94 98 Oxygen Delivery Method Room Air Room Air BMI result Body Mass Index 23.3 Const General: cooperative, no acute distress, alert and awake Nutritional Appearance: well nourished Orientation/consciousness: patient oriented x3 Limitations: no limitations HENMT Head: Yes normal to inspection and Yes atraumatic Ears: hearing grossly normal bilaterally and external ears normal General nose exam: Normal external nose present, no nasal discharge noted and no epistaxis Face and sinus: Yes normal facial exam, No abrasion and No laceration Mouth: Normal oral and palatal mucosa present, no drooling and no muffled voice Eyes General: appearance normal, both eyes and all related structures Periorbital: periorbital findings normal Eyelids: Yes eyelids normal Conjunctivae: conjunctivae normal Pupils: Equal, round and reactive pupils present EOM: EOMs intact bilaterally Neck Neck: Yes normal visual inspection, Yes full ROM and Yes no lymphadenopathy Chest Chest palpation & inspection: normal inspection of the chest Resp Effort & Inspection: normal respiratory effort and able to speak in complete sentences GI Inspection: Yes normal to inspection Neuro General: patient oriented x3 and moves all extremities Cranial nerves: Yes Equal, round and reactive pupils present Cognition (Neuro): normal cognition Motor exam (neuro): 5/5 motor strength present throughout Sensory Exam: Normal double simultaneous stimulation for sensation Coordination: [id number] test normal Extrem General: Yes normal to inspection, Yes full ROM and Yes capillary refill normal Psych Appearance: grossly normal Mental Status: mental status grossly normal Affect: normal affect Attitude: cooperative Thought process: Normal thought process present Thought content: Normal thought content present Insight: Good insight present (Psych) Medications Administered Discontinued Medications Generic Name Dose Route Start Last Admin Trade Name Veronica PRN Reason Stop Dose Admin Diphenhydramine HCl 25 mg 07/14/23 09:35 07/14/23 09:55 Diphenhydramine Hcl 25 Mg Capsule PO 07/14/23 09:36 25 mg ONCE ONE Administration Medical Decision Making Medical Decision Making [facility] Narrative: Patient is a 58 year old assigned male at with a history of depression presenting to the emergency department today with bilateral eye irritation. Patient's physical exam was unremarkable. I explained my physical exam findings to the patient. I answered all questions asked by the patient. I stressed the importance of the patient taking his medication as prescribed. I stressed the importance of the patient following up with his primary care provider and an experience specialist. I stressed the importance of the patient returning to the emergency department immediately if his symptoms were to worsen or if he were to develop any dizziness, shortness of breath, difficulty breathing, chest pain, blurry vision, loss of vision, nausea, vomiting, abdominal pain, fever, chills, back pain, or any other complaints. Patient verbalized agreement and understanding with this treatment plan and discharge. Differential Diagnosis Differential Diagnoses: The differential diagnosis associated with the presentation includes Allergic conjunctivitis Irritated eyes Discharge Plan Discharge Clinical Impression: Allergic conjunctivitis Patient Disposition: Home, Self-Care Instructions: Conjunctivitis (ED) Additional Instructions: Follow up with your primary care provider and an experience specialist. Return to the emergency department immediately if your symptoms worsen or if you develop any dizziness, shortness of breath, difficulty breathing, chest pain, blurry vision, loss of vision, nausea, vomiting, abdominal pain, fever, chills, back pain, or any other complaints. Urban un seguimiento con leyva proveedor de atenci?n primaria y un oftalm?logo. Regrese al departamento de emergencias inmediatamente si kathe s?ntomas empeoran o si presenta mareos, dificultad para respirar, dificultad para respirar, dolor en el pecho, visi?n borrosa, p?rdida de la visi?n, n?useas, v?mitos, dolor abdominal, fiebre, escalofr?os, dolor de espalda o cualquier otras quejas. Prescriptions: New loratadine 10 mg tablet 10 mg PO DAILY Qty: 30 0RF No Action lidocaine 4 % adhesive patch,medicated 1 patch topical DAILY PRN (Reason: pain) Qty: 10 0RF Rx Instructions: may leave on for up to 12 hrs prednisone 20 mg tablet 40 mg PO DAILY 5 Days Qty: 10 0RF prednisone 50 mg tablet 50 mg PO DAILY 5 Days Qty: 5 0RF ondansetron 4 mg tablet,disintegrating 4 mg PO Q8H PRN (Reason: nausea and vomiting) 5 Days Qty: 15 0RF erythromycin 5 mg/gram (0.5 %) ointment 0.5 inch ophthalmic (eye) QID 7 Days Qty: 3.5 0RF naproxen 500 mg tablet 500 mg PO BID cyclobenzaprine 5 mg tablet 5 mg PO TID PRN (Reason: Muscle Spasm) trazodone 150 mg tablet 150 mg PO BEDTIME PRN (Reason: Insomnia) hydrocortisone [Anusol-HC] 2.5 % cream with perineal applicator 1 appl MI QID PRN (Reason: hemorrhoids) Qty: 30 2RF Citrucel 500 mg tablet 500 mg PO DAILY Qty: 30 6RF Referrals: [facility] [Primary Care Provider] - Erick Nuñez [Physician] - (Call to establish and follow up with an experience specialist. Llame para establecer y realizar un seguimiento con un oftalm?logo.) Interventions: ED Discharge Assessment Last Done: 07/14/23 09:57 Discharge Date/Time: 07/14/23 09:57 Print Language: Djiboutian
[2023-07-14 09:46] VITALS: BP 118/60; PULSE 80; RESP 18; TEMP 36.6; O2SAT 98
[2023-07-14] MEDS: diphenhydrAMINE HCL 25 MG CAPSULE PO (09:55)
== END 2023-07-14 09:57 | disposition home or self-care (01) ==
PROVIDERS: Emergency Provider Student in an Organized Health Care Education/Training Program; PCP Internal Medicine
DX: H10.13 Acute atopic conjunctivitis, bilateral (principal); F17.210 Nicotine dependence, cigarettes, uncomplicated; F12.90 Cannabis use, unspecified, uncomplicated
CPT/HCPCS: 99283; 99284

== ENCOUNTER 2024-04-19 13:31 | Emergency (ER) | payer MEDICAID, SELFPAY ==
--- NOTE | ~2024-04-19 | XR_ITS ---
EXAMINATION: XR CHEST CLINICAL INFORMATION: Cough for 2 weeks COMPARISON: Prior chest radiograph 04/23/2023 TECHNIQUE: 2 views of the chest were obtained. FINDINGS: No significant abnormality is noted involving the heart, lungs, mediastinum, bony thorax or soft tissues. XR/XR chest 2V IMPRESSION: Unremarkable examination. Electronically signed by: Rah Martinez MD 04/19/2024 04:28 PM EDT RP
--- NOTE | 2024-04-19 14:45 | ED_ITS ---
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 He reports a dry nonproductive cough for 1-2 weeks. As he coughs he develops pain to the bilateral lower costal region. Pain also increases with particular movements such as twisting or heavy lifting. He has not used any OTC analgesics or cold medications. He has a long-term tobacco use history. Denies any known history of asthma/COPD. Reports no associated fevers, chills, night sweats, recent unintentional weight loss, hemoptysis, chest pain, shortness of breath. Related Data Home Medications ?Medication ?Instructions ?Recorded ?Confirmed cyclobenzaprine 5 mg tablet 5 mg PO TID PRN Muscle Spasm 06/25/20 08/15/20 naproxen 500 mg tablet 500 mg PO BID 06/25/20 08/15/20 trazodone 150 mg tablet 150 mg PO BEDTIME PRN Insomnia 06/25/20 08/15/20 Previous Rx's ?Medication ?Instructions ?Recorded hydrocortisone 2.5 % topical cream 1 appl NM QID PRN hemorrhoids #30 10/01/20 with perineal applicator grams (Anusol-HC) lidocaine 4 % topical patch 1 patch topical DAILY PRN pain #10 11/30/20 ea prednisone 20 mg tablet 40 mg (2 x 20 mg) PO DAILY 5 days 11/30/20 #10 tabs methylcellulose (laxative) 500 mg 500 mg PO DAILY #30 tabs 05/16/21 tablet (Citrucel) prednisone 50 mg tablet 50 mg PO DAILY 5 days #5 tabs 11/27/21 ondansetron 4 mg disintegrating 4 mg PO Q8H PRN nausea and 06/25/22 tablet vomiting 5 days #15 tabs erythromycin 5 mg/gram (0.5 %) eye 0.5 inch ophthalmic (eye) QID 7 06/17/23 ointment days #3.5 grams loratadine 10 mg tablet 10 mg PO DAILY #30 tabs 07/14/23 azithromycin 250 mg tablet See Rx Instructions PO .COMPLEX #6 04/19/24 tabs benzonatate 100 mg capsule 100 mg PO BID PRN cough #14 caps 04/19/24 prednisone 20 mg tablet 40 mg (2 x 20 mg) PO DAILY #10 tabs 04/19/24 Allergies Allergy/AdvReac Type Severity Reaction Status Date / Time No Known Allergies Allergy Verified 04/19/24 14:49 Review of Systems Review of Systems: Yes all other systems are reviewed and are negative [facility] Past Medical History Attestation statement: The following information was validated with the patient. Source: old records reviewed Medical History Constipation Hemorrhoid Nonimmune to hepatitis B virus Hepatitis A immune Lumbar degenerative disc disease Depression Congenital foot abnormality Arthritis Surgical History History of esophagogastroduodenoscopy (EGD) H/O colonoscopy History of hydrocelectomy History of repair of laceration Family History Family History Mother Liver cancer Maternal Uncle Alcoholism Social History Social History Household Members: None Housing: Apartment Do you presently have visiting nurse or other home services: Yes (STRAWHAT INSPECTOR AND PACKER- 1 hour daily) Alcohol intake: current Alcohol intake frequency: does not drink Cigarette Packs Per Day: 1 Substance Use Type: Marijuana Advance Directives: No Advance Directives Information Provided: No Physical Exam ED Vital Signs: Vital Signs - 24 hr 04/19/24 14:46 04/19/24 19:31 Temperature 98.8 F 98.8 F Pulse Rate 87 87 Respiratory Rate 18 18 Blood Pressure 116/80 116/80 Pulse Oximetry 96 96 Oxygen Delivery Method Room Air Room Air BMI result Body Mass Index 28.0 Appearance: Alert.?Oriented to person, place and time. No acute distress.?Normal affect. Eyes: Pupils equal, round and reactive to light.? ENT: Pharynx normal.?? Neck: Normal inspection.? Neck supple.?? CVS: Heart sounds normal. Normal heart rate and rhythm.? Pulses normal.?? Respiratory: No respiratory distress.? Lung sounds mild rhonchi in the bilateral lower bases Abdomen: Soft and non-tender. Normoactive bowel sounds. Skin: Skin warm and dry.? Normal skin color.? Extremities: No lower extremity edema.? No calf ttp? Neuro: Moves all extremities spontaneously. Sensation intact bilaterally. No focal neuro deficits. Ambulates with normal steady gait. Course Course Course Narrative: This is a rapid medical exam performed by Alexandra Jacobs NP: Additional HPI, ROS, PE not included below will be deferred to primary provider. Patient is a 59-year-old male presenting to the ED with complaint of cough with bilateral rib pain, worse with movement for 1-2 weeks. Plan: viral swabs, cxr Medical Decision Making Medical Decision Making MDM Narrative: Patient is a 59-year-old male past medical history of arthritis, depression, lumbar DJD, hemorrhoids presenting for evaluation of cough and rib pain as per HPI. Overall he is well-appearing, nontoxic, afebrile. Without signs of systemic toxicity. No signs of respiratory distress. History and physical examination most concerning for bronchitis, costochondritis in the setting of recent cough, suspect she may have some underlying chronic lung disease given his long history of smoking and age. Will treat as acute bronchitis worse az ithromycin in addition to prednisone, and benzonatate. No evidence of pneumonia on CXR. Was negative unlikely pulmonary embolism. No chest pain, past medical history to suggest ACS. Outpatient follow-up with primary care doctor discussed strict return precautions. All questions answered. Stable for discharge Differential Diagnosis Differential Diagnoses: The differential diagnosis associated with the presentation includes (See narrative above) Admission/Observation Consideration of admission/observation: Escalation of care including admission/observation considered Lab Data [facility] Lab Attestation statement: I reviewed the patient's lab results. (Viral serologies negative) Labs: Lab Results 04/19/24 Range/Units 15:12 Influenza Type A (PCR) NEGATIVE (Negative) Influenza Type B (PCR) NEGATIVE (Negative) RSV RNA Qual (PCR) NEGATIVE (Negative) SARS-CoV-2 RNA (RT-PCR) NEGATIVE (Negative) Independent Interpretation I performed an independent interpretation of an: Plain X-Ray (No consolidation or infiltrates, no rib fracture) Radiology Impression Discussion of test interpretation with radiology: I have reviewed the radiologist's reading. Radiologist Impression: XR/XR chest 2V IMPRESSION: Unremarkable examination. External Record Review External record reviewed: Outpatient record Prescription Management I considered prescription management with: Antibiotic and Other (See narrative above) Discharge Plan Discharge Clinical Impression: Bronchitis Patient Disposition: Home, Self-Care Instructions: Acute Bronchitis (ED) Prescriptions: New azithromycin 250 mg tablet See Rx Instructions .ROUTE .COMPLEX Qty: 6 0RF Rx Instructions: For 250 mg dose pack: take 500 mg today (day 1), then 250 mg for 4 days (days 2-5) prednisone 20 mg tablet 40 mg PO DAILY Qty: 10 0RF benzonatate 100 mg capsule 100 mg PO BID PRN (Reason: cough) Qty: 14 0RF No Action lidocaine 4 % adhesive patch,medicated 1 patch topical DAILY PRN (Reason: pain) Qty: 10 0RF Rx Instructions: may leave on for up to 12 hrs prednisone 20 mg tablet 40 mg PO DAILY 5 Days Qty: 10 0RF prednisone 50 mg tablet 50 mg PO DAILY 5 Days Qty: 5 0RF ondansetron 4 mg tablet,disintegrating 4 mg PO Q8H PRN (Reason: nausea and vomiting) 5 Days Qty: 15 0RF erythromycin 5 mg/gram (0.5 %) ointment 0.5 inch ophthalmic (eye) QID 7 Days Qty: 3.5 0RF loratadine 10 mg tablet 10 mg PO DAILY Qty: 30 0RF naproxen 500 mg tablet 500 mg PO BID cyclobenzaprine 5 mg tablet 5 mg PO TID PRN (Reason: Muscle Spasm) trazodone 150 mg tablet 150 mg PO BEDTIME PRN (Reason: Insomnia) hydrocortisone [Anusol-HC] 2.5 % cream with perineal applicator 1 appl NM QID PRN (Reason: hemorrhoids) Qty: 30 2RF Citrucel 500 mg tablet 500 mg PO DAILY Qty: 30 6RF Referrals: Physician,Unknown J [Primary Care Provider] - Interventions: ED Discharge Assessment Last Done: 04/19/24 19:31 Print Language: Czech
[2024-04-19 14:46] VITALS: BP 116/80; PULSE 87; RESP 18; TEMP 37.1; O2SAT 96; BMI 28.0
[2024-04-19 16:01] LABS: Influenza A PCR NEGATIVE (Negative); Influenza B PCR NEGATIVE (Negative); Resp Syncy Virus RNA Qual PCR NEGATIVE (Negative); SARS COV2 PCR INHOUSE NEGATIVE (Negative)
[2024-04-19 19:31] VITALS: BP 116/80; PULSE 87; RESP 18; TEMP 37.1; O2SAT 96
== END 2024-04-19 19:32 | disposition home or self-care (01) ==
PROVIDERS: Registered Nurse Emergency; Emergency Provider Emergency Medicine
DX: J40 Bronchitis, not specified as acute or chronic (principal); R05.9 Cough, unspecified; Z03.818 Encounter for observation for suspected exposure to other biological agents ruled out; Z79.899 Other long term (current) drug therapy
CPT/HCPCS: 0241U; 71046; 99283; 99284

== ENCOUNTER 2025-01-03 08:53 | Outpatient (REF) | payer MEDICAID, SELFPAY ==
--- NOTE | ~2025-01-03 | XR_ITS ---
EXAMINATION: XR LUMBOSACRAL SPINE CLINICAL INFORMATION: pain COMPARISON: Chronic low back pain, bilateral sciatica distribution pain without numbness and tingling TECHNIQUE: Three views of the lumbosacral spine. Comparison June 03, 2023 FINDINGS: There are 5 nonrib-bearing lumbar segments. Chronic circular calcific density 16 mm diameter is again seen to the right and just anterior of upper L1. *Crustaceans are present in the abdominal aorta and iliac arteries. There is 13 degrees dextro scoliosis. Vertebral body height and alignment is preserved. There is stable mild loss of disc height and anterior vertebral body osteophyte between L1-2 and L4-5. There is mild to moderate facet arthropathy at L4-5. L5-S1: There is moderate to severe loss of disc height, endplate sclerosis, and endplate osteophytes. There is probable neural foraminal narrowing. SI joints are unremarkable. XR/XR lumbar spine 2-3V IMPRESSION: L5-S1 stable moderate degenerative disc disease and facet arthropathy likely with foraminal narrowing. Mild dextroscoliosis. Electronically signed by: Mansoor Alfonso MD 01/03/2025 10:53 AM EDT
[2025-01-03 11:06] LABS: MANUAL DIFF FLAG NO
[2025-01-03 11:35] LABS: Basophils Percent Auto 0.6 % (0-2); Eosinophils Absolute Auto 0.1 X10*3/uL (0.0-0.4); Eosinophils Percent Auto 1.9 % (0-4); Hematocrit 39.2 % (42.0-52.0); Hemoglobin 13.2 g/dl (14.0-18.0); Imm Gran Abs Auto 0.03 X10*3/uL (0.00-0.03); Imm Gran Pct Auto 0.5 % (0.0-0.4); Lymphocytes Absolute Auto 1.8 X10*3/uL (1.2-4.9); Lymphocytes Percent Auto 28.6 % (20-40); Mean Corpuscular HGB Conc 33.7 g/dl (31.0-36.0); Mean Corpuscular Hemoglobin 31.7 pg (27.0-33.0); Mean Platelet Volume 10.3 fL (9.4-12.4); Monocytes Percent Auto 15.2 % (2-11); Neutrophils Absolute Auto 3.4 x10*3/uL (2.0-8.3); Neutrophils Percent Auto 53.2 % (45-73); Platelet Count 269 X10*3/uL (160-400); Red Blood Count 4.17 X10*6/uL (4.60-5.80); Red Cell Distribution Width 14.6 % (11.0-16.0); White Blood Count 6.3 X10*3/uL (4.8-10.8)
[2025-01-03 11:44] LABS: Estimated Average Glucose 108 mg/dL; Hemoglobin A1C 123.5462 umol/L; Hemoglobin A1c % 5.4 % (<6.0); Total Hemoglobin (HGBA1C) 3479.1401 umol/L
[2025-01-03 11:53] LABS: Rheumatoid Factor < 13.0 IU/mL (<15.0)
[2025-01-03 12:13] LABS: Erythrocyte Sedimentation Rate 7 MM/HR (0-15)
[2025-01-03 15:13] LABS: TSH reflex Free T4 1.22 uIU/mL (0.32-4.0); Vitamin D 25-OH Total 7.4 ng/mL (>30)
[2025-01-03 15:26] LABS: Anion Gap 9 (12-20)
[2025-01-03 15:31] LABS: Alanine Aminotransferase 18 U/L (0-40); Alkaline Phosphatase 70 U/L (39-117); Aspartate Amino Transferase 18 U/L (5-37); Bilirubin Total 0.2 mg/dL (0.0-1.0); Blood Urea Nitrogen 17 mg/dL (9-16); C Reactive Protein < 0.10 mg/dL (< or = 0.50); Calcium 8.7 mg/dL (8.4-10.2); Carbon Dioxide 23 mmol/L (22-29); Chloride 109 mmol/L (96-108); Cholesterol 191 mg/dL (<200); Estimated Glomerular Filt Rate > 60; Glucose Random 98 mg/dL (60-115); HDL Cholesterol 54 mg/dL (>40); LDL Cholesterol Calculated 122 mg/dL (<100); Potassium 4.2 mmol/L (3.3-5.1); Sodium 137 mmol/L (135-145); Total Protein 6.2 g/dL (6.5-8.0); Triglycerides 79 mg/dL (<150)
[2025-01-04 04:56] LABS: HIV AB/AG Nonreactive (Nonreactive); HIV Num 1 0.06 S/CO (0.00-0.99); ~HepC Num1 0.06 S/CO (0.00-0.79); ~Hepatitis B Surface Antibody NONREACTIVE (Nonreactive); ~Hepatitis C Antibody Nonreactive (Nonreactive)
[2025-01-04 16:14] LABS: Cyclic Citrullinated Peptide <16 UNITS
[2025-01-09 06:29] LABS: Anti Nuclear Antibody Screen NEGATIVE (NEGATIVE)
== END 2025-01-03 08:54 | disposition home or self-care (01) ==
LOC: HO.HHCL 08:53
PROVIDERS: Visit Provider Internal Medicine
DX: Z00.00 Encounter for general adult medical examination without abnormal findings (principal); G89.29 Other chronic pain; M54.41 Lumbago with sciatica, right side; M54.42 Lumbago with sciatica, left side; M25.50 Pain in unspecified joint
CPT/HCPCS: 36415; 72100; 80053; 80061; 82306; 83036; 84443; 85025; 85652; 86038; 86140; 86200; 86431; 86706; 86803; 87389

== ENCOUNTER → 2025-01-03 09:21 | Outpatient (BNV) | payer MEDICAID, SELFPAY | PROVIDERS: Visit Provider Radiology Diagnostic Radiology | DX: M51.370 Other intervertebral disc degeneration, lumbosacral region with discogenic back pain only (principal) | CPT/HCPCS: 72100 ==

== ENCOUNTER 2025-01-22 09:13 | Outpatient (AMB) | payer MEDICAID, SELFPAY ==
--- NOTE | 2025-01-22 10:20 | A.OFFVIS_ITS ---
Vital Signs 01/22/25 10:34 Height 5 ft 2 in Weight 142 lb 4 oz BMI 26.0 BP 114/72 Blood Pressure Location Lt brachial Position Sitting Pulse 69 Pulse Source Pulse Oximeter Pulse Oximetry (%) 96 Oxygen Delivery Method Room Air Intake Visit Reasons: Lumbar disc disease w radiculopathy Intake Note: Pain today 5-6/10 sitting, 8-9/10 walking a mile, has to stop and sit to relieve back and bilateral leg pain Cigar Bander Hand Required: Yes Cigar Bander Hand Language: Operations Research Group Manager Services: Cigar Bander Hand Present Cigar Bander Hand Name: Ronna #[id number] Information Interpreted: non-clinical & clinical Accompanied by: Self / Same As Patient Allergies No Known Allergies Allergy (Verified 04/19/24 14:49) HPI Comments Details: The patient is a 59-year-old male presenting with chronic low back pain and associated symptoms. The patient reports experiencing mid back pain that radiates down to both legs, persisting for more than a year. The pain originated from an incident in [place] where he injured his back while pulling a boat and subsequently had a trip and fall, exacerbating the condition. He denies any recent falls or injuries to his back. Denies any previous spine injections or surgery. The patient describes the pain as moderate, with a current level of 5-6/10 while sitting, escalating to 8-9/10 after walking a mile. He reports needing to stop and sit to relieve both back and leg pain. The patient has a history of congenital foot abnormality, arthritis, and depression, for which he receives counseling. He also has a history of polysubstance abuse, including cocaine use, which he ceased three years ago, and current marijuana use. - Onset: More than a year ago, following a back injury while pulling a boat and a subsequent fall - Quality: Moderate pain, stabbing, pins and needles, radiating from mid back to both legs - Exacerbating factors: Walking, bending, prolonged standing increases pain to 8-9/10 - Relieving factors: Stopping and sitting alleviates pain, hot shower - Interference: Pain affects walking, requiring frequent stops - Affect: Depression, receiving counseling at [facility] - Analgesia: Current pain level 5-6/10, escalating to 8-9/10 with activity - Activities of Daily Living: Pain impacts walking, requiring frequent stops - Aberrant Drug Related Behaviors: History of cocaine use, ceased three years ago; current marijuana use [facility] Medical History (Updated 01/22/25 @ 10:49 by WILLI Bennett) Chronic low back pain with bilateral sciatica Polyarthralgia Chronic bilateral thoracic back pain Depressive disorder Insomnia Major depressive disorder, single episode, severe Polysubstance abuse Vitamin D deficiency Constipation Hemorrhoid Nonimmune to hepatitis B virus Hepatitis A immune Lumbar degenerative disc disease Depression Congenital foot abnormality Arthritis Surgical History History of esophagogastroduodenoscopy (EGD) H/O colonoscopy History of hydrocelectomy History of repair of laceration Family History Mother Liver cancer Maternal Uncle Alcoholism Social History (Updated 01/22/25 @ 10:46 by Carmen Vann) Household Members: None Housing: Apartment Do you presently have visiting nurse or other home services: Yes (APPLIANCE COUNSELOR- 1 hour daily) Alcohol intake: current Alcohol intake frequency: does not drink Cigarette Packs Per Day: 1 Substance Use Type: Marijuana Current occupational status: disabled Review of Systems Const Details: - Musculoskeletal: Reports chronic low back pain radiating to legs - Neurological: Denies recent falls or injuries - Psychiatric: Reports depression, receiving counseling at [facility] All systems reviewed & are unremarkable except as noted in HPI and below Physical Exam Vital Signs: Last Vital Signs Pulse 69 01/22/25 10:34 BP 114/72 01/22/25 10:34 Pulse Ox 96 01/22/25 10:34 Oxygen Delivery Method Room Air 01/22/25 10:34 BMI result Body Mass Index 26.0 General: Appears afebrile. Alert and oriented. Mood and affect appropriate. Follows and participates in conversation appropriately. Respiratory effort is unlabored. No cough. Able to transition from sit to stand unassisted. Uses cane for ambulation. Ambulates with bilaterally normal heel strike and toe off. General: Yes no CVA tenderness Back/Spine/Pelvis Other: Limited lumbar ROM due to pain. Lumbar bending, flexion forward and extension reproduce moderate pain, worse with lumbar extension and axial rotations. Demonstrates 5/5 strength of quadriceps bilaterally as well as flexion/dorsiflexion of bilateral feet against resistance. 2+ pedal pulses bilaterally. Seated and supine straight leg rise with dorsiflexion negative bilaterally. +2 patellar and achilles reflexes bilaterally. Facet loading test positive bilaterally. Andrew sign, Mahesh?s, Pelvic compression and Stinchfield tests are negative bilaterally. No groin pain with I/E hip rotations. Valsalva maneuver negative. Back: no CVA tenderness Cervical Spine: cervical ROM normal, cervical muscular tenderness and No Cervical spine tenderness Thoracic/Lumbar Spine: thoracic and lumbar spine normal to inspection, No Thoracic/lumbar spine scar(s), Lasegue's sign negative, straight leg raise negative bilaterally, pain with thoraco-lumbar ROM, paraspinal muscle tenderness, thoraco-lumbar ROM limited, Thoracic/lumbar scoliosis, No thoracic spinal tenderness and lumbar spinal tenderness (L3-S1) Sacroiliac joints: bilaterally nontender Extrem General: Yes capillary refill normal, Yes no clubbing, cyanosis or edema and Yes no calf tenderness Results Reviewed Results Reviewed: XR LUMBOSACRAL SPINE 01/03/25 COMPARISON: Chronic low back pain, bilateral sciatica distribution pain without numbness and tingling Comparison June 03, 2023 FINDINGS: There are 5 nonrib-bearing lumbar segments. Chronic circular calcific density 16 mm diameter is again seen to the right and just anterior of upper L1. *Crustaceans are present in the abdominal aorta and iliac arteries. There is 13 degrees dextro scoliosis. Vertebral body height and alignment is preserved. There is stable mild loss of disc height and anterior vertebral body osteophyte between L1-2 and L4-5. There is mild to moderate facet arthropathy at L4-5. L5-S1: There is moderate to severe loss of disc height, endplate sclerosis, and endplate osteophytes. There is probable neural foraminal narrowing. SI joints are unremarkable. IMPRESSION: L5-S1 stable moderate degenerative disc disease and facet arthropathy likely with foraminal narrowing. Mild dextroscoliosis. XR thoracic spine 3V 06/03/23 Indication: Trauma EXAMINATION: Lumbar sacral spine, thoracic spine, chest x-ray with ribs. Single image of the chest is compared to previous dated 04/23/2023. Findings; There is no pneumothorax. There is no effusion. The mediastinal contours are within normal limits and comparable to previous. 3 detailed images of the right ribs do not demonstrate evidence for fracture. 3 views of the lumbar sacral spine are compared to previous dated 11/30/2020. No acute finding. Degenerative change most noted L5-S1. No evidence of listhesis or compression injury. Once again scoliosis convex right apex at L3. Degenerative changes likely in the posterior elements in the lower lumbar region. 4 views submitted of the thoracic spine. Comparison sagittal imaging from just CT dated 06/03/2023. Degenerative changes. No acute finding. No compression injury. No listhesis. IMPRESSION: Multiple studies. No acute finding. Assessment & Plan Assessment & Plan (1) Lumbar degenerative disc disease: Code(s): M51.36 - Other intervertebral disc degeneration, lumbar region Category: Medical (2) Chronic bilateral thoracic back pain: Code(s): M54.6 - Pain in thoracic spine; G89.29 - Other chronic pain Category: Medical (3) Chronic low back pain with bilateral sciatica: Code(s): M54.41 - Lumbago with sciatica, right side; M54.42 - Lumbago with sciatica, left side; G89.29 - Other chronic pain Category: Medical (4) Lumbar spondylosis: Code(s): M47.816 - Spondylosis without myelopathy or radiculopathy, lumbar region Category: Medical Plan The plan includes initiating physical therapy to address the patient's chronic low back pain and associated symptoms. If physical therapy does not provide sufficient relief, the consideration of diagnostic lumbar medial branch blocks as an injection to confirm the source of pain is discussed. The patient is informed about the potential for radiofrequency ablation if the injections prove effective, offering pain relief for up to a year. Patient is hesitant towards Sprint PNS trial due to reading and writing illiteracy as well as living alone situation. Lidocaine patches are prescribed for topical pain relief. Continue baclofen, naproxen and heat therapy. All questions and concerns have been answered and patient agreed with the plan. Follow up after PT and sooner as needed. Patient was informed and verbally consented to the use of an ambient scribe for clinic note documentation during this visit. Orders: Orders PT Evaluation and Treatment Today G89.29 - Other chronic pain, M47.816 - Spondylosis without myelopathy or radiculopathy, lumbar region, M51.36 - Other intervertebral disc degeneration, lumbar region, M54.41 - Lumbago with sciatica, right side, M54.42 - Lumbago with sciatica, left side, M54.6 - Pain in thoracic spine Medications: New lidocaine 5% 1 patch topically; 30 ea 0RF pain 30 days G89.29 - Other chronic pain, M47.816 - Spondylosis without myelopathy or radiculopathy, lumbar region, M51.36 - Other intervertebral disc degeneration, lumbar region, M54.6 - Pain in thoracic spine Coding Level of Care Code New Pt Level 4 (32891) Diagnoses Lumbar degenerative disc disease M51.36 Chronic bilateral thoracic back pain M54.6; G89.29 Chronic low back pain with bilateral sciatica M54.41; M54.42; G89.29 Lumbar spondylosis M47.816
[2025-01-22 10:34] VITALS: BP 114/72; PULSE 69; O2SAT 96; BMI 26.0
== END 2025-01-22 10:52 | disposition home or self-care (01) ==
LOC: HO.PMC 09:13
PROVIDERS: PCP Internal Medicine; Referring Provider Internal Medicine; Visit Provider Nurse Practitioner Family
DX: M51.369 Other intervertebral disc degeneration, lumbar region without mention of lumbar back pain or lower extremity pain (principal); M54.6 Pain in thoracic spine; G89.29 Other chronic pain; M54.41 Lumbago with sciatica, right side; M54.42 Lumbago with sciatica, left side; M47.816 Spondylosis without myelopathy or radiculopathy, lumbar region
CPT/HCPCS: 99204

== ENCOUNTER → 2025-01-22 09:13 | Outpatient (BNVA) | payer MEDICAID, SELFPAY | PROVIDERS: PCP Internal Medicine; Referring Provider Internal Medicine; Visit Provider Nurse Practitioner Family | DX: M51.369 Other intervertebral disc degeneration, lumbar region without mention of lumbar back pain or lower extremity pain (principal); M47.816 Spondylosis without myelopathy or radiculopathy, lumbar region; G89.29 Other chronic pain; M54.41 Lumbago with sciatica, right side; M54.42 Lumbago with sciatica, left side | CPT/HCPCS: 99212 ==